=== PATIENT | female | born 1955 | race Caucasian/White ===

== ENCOUNTER 2022-12-25 06:39 | Outpatient (REF) | payer MEDICARE, SELFPAY | END 2022-12-25 06:40 | disposition home or self-care (01) | LOC: HO.HOSX 06:39 | PROVIDERS: Visit Provider Orthopaedic Surgery | DX: T84.84XA Pain due to internal orthopedic prosthetic devices, implants and grafts, initial encounter (principal); Z96.652 Presence of left artificial knee joint | CPT/HCPCS: 73562; 99212 ==

== ENCOUNTER 2022-12-25 10:55 | Outpatient (AMB) | payer MEDICARE, BC, SELFPAY ==
--- NOTE | 2022-12-25 11:05 | MHC.OFFVIS ---
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 She continues with her home stretching program. She denies any fevers or chills. She denies any locking or giving way. He has not take any medicines for discomfort. Allergies Sulfa (Sulfonamide Antibiotics) Allergy (Unknown, Verified 12/25/22 11:07) Nausea Medication List - Last Reconciled 12/25/22 by Winston Odom MD alendronate 70 mg PO QWEEK blood sugar diagnostic (FreeStyle Lite Strips) As directed diltiazem HCl mg PO insulin pump cart,auto,BT-cntr (Omnipod 5 G6 Intro Kit (Gen 5) subcutaneous cartridge with controller) As directed insulin pump cart,automated,BT (Omnipod 5 G6 Pods (Gen 5) subcutaneous cartridge) As directed insulin pump cart,cont inf,RF (Omnipod Classic Pods (Gen 3) subcutaneous cartridge) As directed insulin regular hum U-500 conc (Humulin R U-500 (Concentrated) Insulin) units subcut loratadine 10 mg PO DAILY morphine ER 15 mg PO BID PRN omeprazole 20 mg PO DAILY rivaroxaban (Xarelto) 20 mg PO DAILY simvastatin 20 mg PO BEDTIME Physical Exam Const Other: Well-nourished well-developed very friendly female awake alert and oriented x3 in no acute distress Extrem Other: Bilateral lower extremity examination shows good capillary refill, no skin lesions noted, normal sensation light touch Left knee examination shows that the surgical incision is well healed, no erythema, range of motion from -3 degrees to 110 degrees, her patella tracks well Results Reviewed Results Reviewed: X-rays of the patient's left knee show a total knee arthroplasty in good position with no signs of loosening, no acute bony abnormalities Assessment & Plan Assessment & Plan (1) Left knee pain: Code(s): M25.562 - Pain in left knee Plan Ms. Hammond continues to do well after undergoing left total knee replacement surgery on 12/20/2022. She will continue with her home stretching program. She does know to take antibiotics before any dental work. She will contact me prior to her annual follow-up appointment should her symptoms worsen in any way. Feel free to call me at any time should questions regarding her orthopedic management arise. I spent 22 minutes in reviewing the patient's records and imaging studies, seeing the patient and documenting in the medical record. Orders: Orders XR knee LT 3V Today M25.562 - Pain in left knee Coding Level of Care Code Est Pt Level 2 (47024) Diagnoses Left knee pain M25.562
== END 2022-12-25 11:26 | disposition home or self-care (01) ==
PROVIDERS: PCP Internal Medicine Endocrinology, Diabetes & Metabolism; Visit Provider Orthopaedic Surgery
DX: M25.562 Pain in left knee (principal)
CPT/HCPCS: 99212

== ENCOUNTER 2023-12-25 13:08 | Outpatient (AMB) | payer MEDICARE, BC, SELFPAY ==
--- NOTE | 2023-12-25 13:11 | MHC.OFFVIS ---
Intake Visit Reasons: OV-Left knee follow up Intake Note: Rhina is a 68 year old female that presents today for a follow up after undergoing left total knee replacement surgery on 12/20/2021. Pt states ocassionally she will get some pain especially after going up and down stairs multiple times. Pt states she has been working on her ROM exercises which has improved a lot. Pt denies any other concerns at this time. She continues with her home exercise program. She does not take any medicines for her discomfort. Allergies Sulfa (Sulfonamide Antibiotics) Allergy (Unknown, Verified 12/25/23 13:11) Nausea Medication List - Last Reconciled 12/25/23 by Winston Odom MD alendronate 70 mg PO QWEEK blood sugar diagnostic (FreeStyle Lite Strips) As directed diltiazem HCl CD mg PO insulin pump cart,auto,BT-cntr (Omnipod 5 G6 Intro Kit (Gen 5) subcutaneous cartridge with controller) As directed insulin pump cart,automated,BT (Omnipod 5 G6 Pods (Gen 5) subcutaneous cartridge) As directed insulin pump cart,cont inf,RF (Omnipod Classic Pods (Gen 3) subcutaneous cartridge) As directed insulin regular hum U-500 conc (Humulin R U-500 (Concentrated) Insulin) units subcut loratadine 10 mg PO DAILY morphine ER 15 mg PO BID PRN omeprazole 20 mg PO DAILY rivaroxaban (Xarelto) 20 mg PO DAILY simvastatin 20 mg PO BEDTIME Physical Exam Const Other: Well-nourished well-developed very friendly female awake alert and oriented x3 in no acute distress Extrem Other: Bilateral lower extremity examination shows good capillary refill, no skin lesions noted, normal sensation light touch Left knee examination shows that the surgical incision is well healed, no erythema, full active extension and flexion to 120 degrees, her patella tracks well Assessment & Plan Assessment & Plan (1) Left knee pain: Code(s): M25.562 - Pain in left knee Category: Medical Plan Ms. Hammond continues to do well after undergoing left total knee replacement surgery on 12/14/2021. She will continue with her home exercise program. She does know to take antibiotics before any dental work. She will contact me prior to her annual follow-up appointment should any questions or concerns arise. Feel free to call me at any time should questions regarding her orthopedic management arise. I spent 22 minutes in reviewing the patient's records and imaging studies, seeing the patient and documenting in the medical record. Coding Level of Care Code Est Pt Level 3 (60578) Complex EM visit Add On G2211 Diagnoses Left knee pain M25.562
== END 2023-12-25 13:33 | disposition home or self-care (01) ==
PROVIDERS: PCP Internal Medicine Endocrinology, Diabetes & Metabolism; Visit Provider Orthopaedic Surgery
DX: M25.562 Pain in left knee (principal); Z96.652 Presence of left artificial knee joint
CPT/HCPCS: 99213

== ENCOUNTER → 2023-12-25 13:08 | Outpatient (BNVA) | payer MEDICARE, BC, SELFPAY | PROVIDERS: PCP Internal Medicine Endocrinology, Diabetes & Metabolism; Visit Provider Orthopaedic Surgery | DX: M25.562 Pain in left knee (principal); Z98.890 Other specified postprocedural states | CPT/HCPCS: 99212 ==

== ENCOUNTER 2024-12-23 08:26 | Outpatient (REF) | payer MEDICARE, SELFPAY ==
--- OUTSIDE RECORDS SUMMARY | 2024-12-27 08:56 | XMS_ITS | Clinical Summary ---
Author Organization [facility] Address [address] [place] [address] Care Team Providers Care Loading Unit Operator Name Role Phone Nikki Bansal Primary Care Provider Allergies Active Allergy Reactions Criticality Noted Date Comments Adhesive Tape Rash Low 06/14/2021 Sulfa Antibiotics Other (See Comments) Low Stomach pain Sulfacetamide Other (See Comments) Low 03/11/2005 GI pain Medications Medication Sig Dispensed Refills Start Date End Date Status HUMULIN R 500 UNIT/ML injection In Pump over 24 hours 12 am- 3 am 0.25 units 3 am-10 am 0.50 units 10am - 2;;00 pm: 0.70 units 2pm-12:00 AM 0.85 Units 5 12/14/2018 Active glucose blood (FREESTYLE LITE) test strip 1 each by Other route as needed for other. Use as instructed 0 Active simvastatin (ZOCOR) tablet 20 mg Take 20 mg by mouth every night at bedtime. 0 Active Loratadine 10 MG CAPS Take 1 tablet by mouth daily. 0 Active dilTIAZem (CARDIZEM CD) 360 MG 24 hr capsule Take 360 mg by mouth daily. 0 Active omeprazole (PriLOSEC) 20 MG capsule Take 20 mg by mouth daily. 0 Active ketotifen (ZADITOR) 0.025 % ophthalmic solution 1 drop 2 (two) times a day as needed. 0 Active carboxymethylcellul ose PF (REFRESH PLUS) 0.5 % SOLN 3 drops 3 (three) times a day as needed. 0 Active acetaminophen (TYLENOL) 500 MG tablet Take by mouth every 6 (six) hours as needed. 0 Active triamcinolone (KENALOG) 0.025 % cream Apply topically 2 (two) times a day as needed. 0 Active alendronate (FOSAMAX) tablet 70 mg Take 70 mg by mouth every 7 days. Tuesdays 0 04/02/2021 Active dabigatran etexilate (Pradaxa) 150 MG capsu Take 1 capsule by mouth 2 (two) times a day. 0 02/26/2021 Active Probiotic Product (Remote Assistant Immune Defense) CHEW Chew 1 tablet by mouth daily. 0 Active Insulin Disposable Pump (OmniPod 5 Pack) MISC 0 10/25/2021 Active methocarbamol (ROBAXIN) 750 MG tablet Take 1 tablet (750 mg total) by mouth every 6 (six) hours as needed (spasms). 50 tablet 0 12/21/2021 Active meloxicam (MOBIC) 15 MG tablet Take 1 tablet (15 mg total) by mouth daily. 30 tablet 0 12/21/2021 Active senna-docusate (PERICOLACE) 8.6-50 MG Take 1 tablet by mouth 2 (two) times a day as needed for constipation. 50 tablet 0 12/21/2021 Active oxyCODONE (Roxicodone) 5 MG immediate release tablet Take 1-2 tablets (5-10 mg total) by mouth every 6 (six) hours as needed for pain. 38 tablet 0 01/01/2022 Active amoxicillin (AMOXIL) 500 MG tablet Take 4 tabs 1 hour prior to dental appointment 20 tablet 3 01/03/2022 Active Morphine Sulfate ER (MS CONTIN) 15 MG TBCR 0 02/04/2022 Active Xarelto 20 MG TABS tablet Take 1 tablet (20 mg total) by mouth daily. 0 04/19/2022 Active Active Problems Problem Noted Date Diagnosed Date Postop check 01/03/2022 Arthritis of knee, left 10/05/2021 Follow-up exam after treatment 09/19/2021 Impingement syndrome of right shoulder 2 Adhesive capsulitis of right shoulder associated with type 2 diabetes mellitus 06/14/2021 Subacromial bursitis of right shoulder joint Arthritis of knee, left 01/27/2019 Immunizations Name Administration Dates Next Due Covid-19 (Jade Magnet) Dilution Required 10/22,08/10/2021,02/06/2021,06/18/19 21,06/01/2020 Family History Medical History Relation Name Comments Arthritis Father Diabetes Father Heart disease Father Cancer Mother Diabetes Sister Heart disease Sister Relation Name Status Comments Father Mother Sister high cholestero l Social History Tobacco Use Types Packs/Day Years Used Date Smoking Tobacco: Never Smokeless Tobacco: Never Alcohol Use Standard Drinks/Week Comments Yes 0 (1 standard drink = 0.6 oz pur e alcohol) rare Sex and Gender Information Value Date Recorded Sex Assigned at Female 10/31/2021 2:09 PM EDT Gender Identity Female 10/31/2021 2:09 PM EDT Sexual Orientation Not on file Job Start Date Occupation Industry Not on file Not on file Not on file Last Filed Vital Signs Vital Sign Reading Time Taken Comments Blood Pressure 115/69 12/21/2021 7:28 AM EDT Pulse 71 12/21/2021 7:28 AM EDT Temperature 36.6 C (97.9 F) 12/21/2021 7:28 AM EDT Respiratory Rate 16 12/21/2021 7:28 AM EDT Oxygen Saturation 94% 12/21/2021 7:28 AM EDT Inhaled Oxygen Concentration - - Weight 88.5 kg (195 lb 1.7 oz) 12/20/2021 7:49 A M EDT Height 157.5 cm (5' 2 ) 12/20/2021 7:49 AM EDT Body Mass Index 35.69 12/20/2021 7:49 AM EDT Plan of Treatment Health Maintenance Due Date Last Done Comments Hepatitis C Screening 1954 Depression Screening 1966 BMI Counseling 01/16/1972 Preventative Health Evaluation 01/16/1972 Colon Cancer Screening (Colonoscopy) 1999 Breast Cancer Screening (Mammogram) 01/16/2004 Shingrix-Zoster Vaccine (1 of 2) 01/16/2004 RSV Adult > 60+ Yrs or (1 - Risk 60-74 years 1-dose series) 2014 Fall Risk Assessment 2019 Osteoporosis Screening (DEXA Scan) 2019 COVID-19 Vaccine ( season) 2024 10/31/2021, 08/10/2021, 02/06/2021, Additional history exists Influenza Vaccine (#1) 2024 , 01/11/2020, 01/18/2019, Additional history exists DTap / Tdap / Td (3 - Td or Tdap) 01/09/2028 01/08/2018, 07/03/2007 Pneumococcal Vaccine Completed 04/20/2021, 02/09/2018, 07/05/2013 Hepatitis B Vaccines Aged Out No long er eligible based on patient's age to complete this topic RSV Ped < 20 months Aged Out No longe r eligible based on patient's age to complete this topic Medical Devices Implanted Type Area [employer] Fermentation Operator Device Identifier Shelf Expiration Date Model / Serial / Lot Cement Bone Surg Simplex Radiopq Stry-Howm 9549-6-689-114 092 - [id number] Implanted:Qty: 1 on 12/20/2021 by [place] [facility] [place]: Knee [employer] [id number] 02/20/2023 6191-1-010 / / [id number] Cement Bone Surg Simplex Radiopq Stry-Howm [id number] [id number] - [id number] Implanted:Qty: 1 on 12/20/2021 by Winston [place]dom [place] [facility] Left: Knee [employer] [id number] 02/20/2023 6191-1-010 / / [id number] Femoral Cmpnt Lt Sz 2 Stry-Howm [id number]-[id number] 021 - [id number] Implanted:Qty: 1 on 12/20/2021 by Winston [place]dom [place] [facility] [place]: Knee [employer] [id number] 05/26/2026 5515-F-201 / / [id number] Knee Tib Baseplt Prim Cmnt Sz3 Stry-Howm 8069-[id number] 319 - [id number] Implanted:Qty: 1 on 12/20/2021 by Winston Odom [place] [facility] Left: Knee [employer] [id number] 06/14/2026 5520-B-300 / / [id number] Knee Insert Tib Ps X3 Sz3 11mm Stry-Howm 4328-[id number] [id number] - [id number] Implanted:Qty: 1 on 12/20/2021 by Winston Odom [place] [facility] Left: Knee [employer] [id number] 04/16/2025 5532-G-311 / / [id number] Knee Pat Symmetric X3 29x8mm Stry-Howm [id number] - [id number] Implanted:Qty: 1 on 12/20/2021 by Winston Odom [place] [facility] Left: Knee [employer] [id number] 08/24/2026 5550-G-298 / / [id number] Peg Fix Femoral Distal Stry-How [id number] - [id number] Implanted:Qty: 1 on 12/20/2021 by Winston Odom [place] [facility] [place]: Knee [employer] [id number] 11/21/2026 5575-X-000 / / [id number] Advance Directives For more information, please contact: [phone] Latest Code Status on File Code Status Date Activated Date Inactivated Comments Full Code 12/20/2021 1:09 PM 12/21/2021 6:45 PM This code status was ascertained in the following way: discussion with patient . Code Status History Code Status Date Activated Date Inactivated Comments Full Code 12/20/2021 6:48 AM 12/20/2021 1:09 PM This code status was ascertained in the following way: discussion with patient . Care Teams Loading Unit Operator Relationship Specialty Start Date End Date Nikki Bansal [address] [place] [id number] PCP - General Internal Medicine 01/15/19
--- OUTSIDE RECORDS SUMMARY | 2024-12-27 08:56 | XMS_ITS | Clinical Summary ---
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 Dx Code E11.8 12/07/19 23 Active alendronate (FOSAMAX) 70 mg tablet TAKE 1 TABLET BY MOUTH WEEKLY 08/21/19 24 Active triamcinolone (KENALOG) 0.025 % cream APPLY SPARINGLY TO AFFECTED AREAS TWICE A DAY 03/18/20 23 Active Lactobac. rhamnosus GG-inulin ([facility] Geron) 10 billion cell -200 mg capsule, sprinkle Take by mouth. Activ e loratadine (CLARITIN) 10 mg tablet Take 1 Tab by mouth daily for 360 days. 07/29/19 19 Active omeprazole (PRILOSEC) 20 mg tablet,delayed release (DR/EC) Take 1 tablet (20 mg total) by mouth 1 (one) time each day. Active CHOLECALCIFEROL, VITAMIN D3, ORAL Take 1 Capsule by mouth daily Active glucagon (Gvoke HypoPen 2-Pack) 0.5 mg/0.1 mL auto-injector Inject 0.1 mL under the skin if needed (low blood sugar). 0.2 mL 5 02/12/20 24 Active propylene glycol/peg 400/PF (SYSTANE, PF, OPHT) Administer 1 drop into affected eye(s) if needed. Active insulin pump cart,auto,BT,G6/ 7 (Omnipod 5 G6-G7 Pods, Gen 5,) cartridgeIndicat ions:Diabetes mellitus type 2, with complication, on superintendent terminal insulin pump ([facility] V24, [facility] V28) Change pod every 3 days 10 each 11 03/12/20 24 Active acetaminophen (TYLENOL ORAL) Take 650 mg by mouth 3 (three) times a day. 2 tablets every 8 hours Active dilTIAZem CD (CARDIZEM CD) 180 mg 24 hr capsule TAKE 2 CAPSULES BY MOUTH EVERY DAY 180 capsule 1 06/15/19 25 Active Xarelto 20 mg tablet TAKE 1 TABLET BY MOUTH EVERY DAY 30 tablet 6 06/23/19 25 Active BIOTIN, BULK, MISC Active simvastatin (ZOCOR) 20 mg tablet TAKE 1 TABLET BY MOUTH EVERYDAY AT BEDTIME 90 tablet 1 08/04/19 25 Active blood sugar diagnostic (FreeStyle Lite Strips) test stripIndications :Diabetes mellitus type 2, with complication, on superintendent terminal insulin pump ([facility] V24, [facility] V28) Use to check BS 3 times a day 300 each 3 08/20/19 25 Active meclizine (ANTIVERT) 12.5 mg tablet Take 1 tablet (12.5 mg total) by mouth 3 (three) times a day if needed. 07/16/19 25 Active HumuLIN R U-500, Conc, Insulin 500 unit/mL CONCENTRATED injection USE TO DAILY WITH INSULIN PUMP MAX DAILY DOSE 100 UNITS. 20 mL 5 11/03/19 25 Active morphine (MS CONTIN) 15 mg 12 hr tablet Take 1 tablet (15 mg total) by mouth 2 (two) times a day. Max Daily Amount: 30 mg 56 tablet 12/15/19 25 Active alcohol swabs pads, medicatedIndicat ions:Type 2 diabetes mellitus with other specified complication, with long-term current use of insulin ([facility] V24, [facility] V28) DIRECTED 400 each 11 12/18/19 25 Active freestyle (FreeStyle Lancets) 28 gauge lancetsIndicatio ns:Type 2 diabetes mellitus with other specified complication, with long-term current use of insulin ([facility] V24, [facility] V28) 1 Stick by route 4 times daily. 400 each 11 12/18/19 25 Active calcium carbonate-vitami n D3 1,000 mg-20 mcg (800 unit) tablet Take 500 mg by mouth 2 (two) times a day. Active blood-glucose sensor (Dexcom G7 Sensor) deviceIndication s:Type 2 diabetes mellitus with other specified complication, with long-term current use of insulin ([facility] V24, [facility] V28) Change sensor every 10 days 3 each 11 12/18/19 25 Active FREESTYLE LANCETS MISC 1 Stick by route 4 times daily. 04/03/19 12 025 Discontin ued(Reord er) alcohol swabs pads, medicated DIRECTED 06/20/19 10 025 Discontin ued(Reord er) blood-glucose sensor (Dexcom G6 Sensor) deviceIndication s:Diabetes mellitus type 2, with complication, on superintendent terminal insulin pump ([facility] V24, [facility] V28) Change sensor every 10 days 3 each 11 03/12/20 24 025 Discontin ued(Formu selene change) blood-glucose transmitter (Dexcom G6 Transmitter) deviceIndication s:Diabetes mellitus type 2, with complication, on group home insulin pump ([facility] V24, [facility] V28) Change transmitter every 3 months 1 each 3 03/12/20 24 025 Discontin ued(Formu selene change) morphine (MS CONTIN) 15 mg 12 hr tablet Take 1 tablet (15 mg total) by mouth 2 (two) times a day. Max Daily Amount: 30 mg 56 tablet 11/13/19 25 025 Discontin ued(Reord er) Active Problems Problem Noted Date Diagnosed Date Cardiac pacemaker in situ 10/20/2024 Permanent atrial fibrillation ([facility] V24, [facility] V28) 09/05/2023 Dupuytren's disease 04/12/2023 Diabetes mellitus type 2, wi th complication, on superintendent terminal insulin pump ([facility] V24, [facility] V28) 01/28/2022 Poorly controlled type 2 arlette betes mellitus with cataract ([facility] V24, [facility] V28) 01/28/2022 Stage 3 chronic kidney disease ([facility] V24, [facility] V28) 11/28/2021 Osteoporosis 12/10/2019 Paroxysmal A-fib ([facility] V24, [facility] V28) 09/23 Overview (01/02/2024): Last Assessment & Plan: Pacemaker with underlying atrial fibrillation. Her rate is controlled on diltiazem, anticoagulated on Pradaxa. She understands risk and benefits of anticoagulation and wished to continue. She will be going for a left total knee replacement in the next few weeks, I reviewed she may interrupt her therapy as the surgeon feels fit. 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 No new concerns on remote checks. Anatomical narrow angle 08/09/2014 Overview (01/02/2024): No Glaucoma Chronic back pain 12/31/2013 Overview (01/02/2024): Winston Odom MD note 09/07/2013 Degenerative joint disease of knee, left 014 Overview (01/02/2024): Winston Odom MD note 09/07/2013 Nuclear sclerosis 12/31/2013 Overview (01/02/2024): Dr Catalan note 02/08/2013 Sleep apnea 10/30/2012 Obesity 05/14/2011 Chronic liver disease 03/04/2006 Overview (01/02/2024): IMO update Diaphragmatic hernia 03/04/2006 Overview (01/02/2024): IMO update Diverticulitis of colon without hemorrhage 08/23 Paroxysmal supraventricular tachycardia ([facility] V24) 05/23/2005 Overview (01/02/2024): Stress test 06/27 neg 02/2015: Ablation Dr. Bhardwaj Ulcerative colitis ([facility] V24, [facility] V28) Hyperlipidemia 03/11/2005 Overview (01/02/2024): Last Assessment & Plan: Last lipid panel 03/13 total cholesterol 141, HDL 38, LDL 73. Continue statin. Encounters Date Type Department Care Team Description 12/18/2024 Telephone [facility] [address] [place] [address] Rhiannon Dias [place] 12/17/2024 2:30 PM EDT Office Visit Endocrinology [address] [phone] Laura Mccarthy PA Type 2 diabetes mellitus with other specified complication, with long-term current use of insulin ([facility] V24, [facility] V28) (Primary Dx); Stage 3 chronic kidney disease, unspecified whether stage 3a or 3b CKD ([facility] V24, [facility] V28); Mixed hyperlipidemia 12/16/[address] [phone] Laura Mccarthy PA 12/01/2024 1:15 PM EDT Office Visit Adult [facility] [place] - [address] [phone] Lilli Epps PA Chronic left-sided low back pain with left-sided sciatica (Primary Dx); Age-related osteoporosis without current pathological fracture; Vitamin D deficiency 11/11/2024 10:00 AM EDT - 11/11/2024 11:59 PM EDT Hospital Encounter [facility] [address] [place] [phone] Post-menopausal Discharge Disposition: Home or Self Care 10/20/2024 1:00 PM EDT Office Visit [facility] - [address] [place] [phone] Mitch Palafox MD Paroxysmal A-fib (CMS/HCC V24, CMS/HCC V28) (Primary Dx); Sick sinus syndrome (CMS/HCC V24, CMS/HCC V28); Obstructive sleep apnea syndrome; Cardiac pacemaker in situ 10/15/2024 7:35 PM EDT Ancillary Procedure [facility] - [address] [facility] [address] [place] [phone] from Last 3 Months Immunizations Immunization Administration Dates Next Due COVID-19 (Pfizer/Comirnaty) 12yo and older 02/12/2023 H1N1 Inj Preservative Free 03/07/2009 Influenza Quadravalent, 0.5m l (Fluzone High-dose) 65yo and older 12/24/2023 Influenza Quadravalent, MDCK , 0.5ml, with preservative (Flucelvax) 6mo and older 01/08/2018,12/19/2016 Influenza trivalent, 0.5mL ( Fluad) 65yo and older 12/24/2023 Influenza trivalent, 0.5mL ( Fluzone High-dose) 65yo and older 12/20/2022,01/12/2021,01/11/2020,01/18 Influenza trivalent, with pr eservative (Fluzone; Afluria) 6mo and older 06/18/2016,02/03/2014,01/01/2013,01/13,05/14/2011,11/29/2009,12/16/2008 Sampa SARS-CoV-2 COVID-19, mRNA, LNP-S, preservative free 03/10/2022,02/06/2021,06/17/2020,05/26 Pneumococcal conjugate 13 va lent (Prevnar 13, PCV13) 2mo and older 02/09/2018 Pneumococcal polysaccharide 23 valent (Pneumovax 23) 2yo and older 04/20/2021,07/05/2013 RSV, bivalent, protein subun it RSVpreF, 0.5mL, Preservative Free (ABRYSVO) 50yo and older or 32 through 36 wks of 02/26/2023 Td Tetanus diptheria (Tdvax) 7yo and older 01/08/2018 Tdap Tetanus diptheria acell ular pertussis (Boostrix; Adacel) 7yo and older 07/03/2007 Zoster Live 01/13/2015 Surgical History Surgery Date Site/Laterality Comments KNEE SURGERY 1984 Left PROCEDURE:KNEE SURGERY KNEE SURGERY 1994 Right PROCEDURE:KNEE SURGERY CARDIAC ELECTROPHYSIOLOGY MAPPING AND ABLATION 2014 PROCEDURE:CARDIAC ELECTROPHYSIOLOGY MAPPING AND ABLATION CARDIAC PACEMAKER PLACEMENT 2015 PROCEDURE:CARDIAC PACEMAKER PLACEMENT UPPER GASTROINTESTINAL ENDOSCOPY PROCEDURE:UPPER GASTROINTESTINAL ENDOSCOPY COLONOSCOPY PROCEDURE:COLONOSCOPY LUMBAR EPIDURAL INJECTION PROCEDURE:LUMBAR EPIDURAL INJECTION REFRACTIVE SURGERY PROCEDURE:REFRACTIVE SURGERY TOTAL KNEE ARTHROPLASTY 2 Left PROCEDURE:TOTAL KNEE ARTHROPLASTY;COMMENT:Procedure : REPLACEMENT TOTAL KNEE; Surgeon: Winston Odom MD; [facility] [place] Service: Orthopedics; Laterality: Left; JOINT REPLACEMENT PROCEDURE:JOINT REPLACEMENT OTHER SURGICAL HISTORY 07/28 PROCEDURE: NM ECHO TRANSTHORAC R-T 2D W/WO M-MODE REC COMP; COMMENT: mild LVH OTHER SURGICAL HISTORY 07/28 PROCEDURE: NM XTRNL ECG & 48 HR RECORD SCAN STOR W/R&I; COMMENT: neg ESOPHAGOGASTRODUODENOSCOPY 05/03/05 PROCEDURE: NM ESOPHAGOGASTRODUODENOSCOPY TRANSORAL DIAGNOSTIC; COMMENT: Lashae souza COLONOSCOPY 05/03/05 PROCEDURE: NM COLONOSCOPY STOMA DX INCLUDING COLLJ SPEC SPX; COMMENT: Lashae choi OTHER SURGICAL HISTORY 06/09/15 PROCEDURE: COLON CA SCRN NOT HI RSK IND; COMMENT: jimbo; repeat in 10 yrs BREAST BIOPSY 2018 Right PROCEDURE: BX BREAST; PERC NEEDLE CORE W/IMAG GUID Medical History Medical History Date Comments Heart disease DX:Heart disease GERD (gastroesophageal reflux disease) DX:GERD (gastroesophageal reflux disease) Osteoarthritis DX:Osteoarthriti s Hiatal hernia DX:Hiatal hernia Ulcerative colitis ([facility] V24, [facility] V28) 2007 DX:Ulcerative colitis ([facility]) Hypertension DX:Hypertension Hyperlipidemia DX:Hyperlipidemi a Arrhythmia DX:Arrhythmia;CO MMENT:AFIB Migraine headache DX:Migraine he adache;COMMENT:Hx Diabetes mellitus, type II ( [facility] V24, [facility] V28) DX:Diabetes mellitus, type I I ([facility]) Lumbar back pain DX:Lumbar back pain;COMMENT:s/p injury Peripheral neuropathy DX:Periphe ral neuropathy;COMMENT:numbness toes- hands from CTS Cataract DX:Cataract Glaucoma DX:Glaucoma Chronic pain disorder DX:Chronic pain disorder;COMMENT:LBP Pacemaker, artificial DX:Pacemak er, artificial;COMMENT:Biotronik Sleep apnea DX:Sleep apnea;C OMMENT:Does not tolerate CPAP Bilateral swelling of feet DX:Bi lateral swelling of feet Diverticulosis of colon (wit hout mention of hemorrhage) 08/23/2005 DX:Diverticulosis of colon ( without mention of hemorrhage) Diaphragmatic hernia without mention of obstruction or gangrene 03/04/2006 DX:Diaphragmatic hernia wit hout mention of obstruction or gangrene Type II or unspecified type diabetes mellitus with unspecified complication, not stated as uncontrolled DX:Type II or unspecified ty pe diabetes mellitus with unspecified complication, not stated as uncontrolled Unspecified chronic liver di sease without mention of alcohol 03/04/2006 DX:Unspecified chronic live r disease without mention of alcohol Heart disease, unspecified DX:He art disease, unspecified; COMMENT: A FIB Esophageal reflux DX:Esophageal reflux Obesity 05/14/2011 DX:Obesity Diabetes type 2, uncontrolled 08/27/2012 DX :Diabetes type 2, uncontrolled Glaucoma 08/04/2014 DX:Glaucoma Pacemaker 11/29/2015 DX:Pacemaker; CO MMENT: Lashae; 07/24/15 Family History Medical History Relation Name Comments Arthritis Father Cataracts Father Diabetes Father Heart disease Father Breast cancer Maternal Grandmother 60s Cancer Mother Leukemia Mother Diabetes Sister 1 Heart disease Sister 1 Cataracts Sister 2 Hyperlipidemia Sister 3 Diabetes Sister 4 Renal failure Thyroid disease Sister 5 Glaucoma Uncle 1 Heart attack Uncle 2 pat Blindness Neg Hx Macular degeneration Neg Hx Strabismus Neg Hx Relation Name Status Comments Father Maternal Grandmother 60s Mother Sister 1 high cholestero l Sister 2 Sister 3 Sister 4 Sister 5 Uncle 1 Uncle 2 Social History Tobacco Use Types Packs/Day Years Used Date Smoking Tobacco: Never Smokeless Tobacco: Never Tobacco Cessation:Counseling Given: Not Answered Alcohol Use Standard Drinks/Week Comments Yes 0 (1 standard drink = 0.6 oz pur e alcohol) Comments No Sex and Gender Information Value Date Recorded Sex Assigned at Female 02/09/2024 4:33 PM EST Legal Sex Female 4:04 PM EST Gender Identity Female 02/09/2024 4:33 PM EST Sexual Orientation Straight 02/09/2024 4: 33 PM EST Obstetrics History Para Term AB IAB SAB Ectopic Multiple Livin g Live Births 0 0 0 0 Last Filed Vital Signs Vital Sign Reading Time Taken Comments Blood Pressure 122/62 12/17/2024 2:23 PM EDT Pulse 75 12/17/2024 2:23 PM EDT Temperature 36.2 C (97.1 F) 12/17/2024 2:23 PM EDT Respiratory Rate 14 12/01/2024 1:09 PM EDT Oxygen Saturation 95% 12/01/2024 1:09 PM EDT Inhaled Oxygen Concentration - - Weight 86.2 kg (190 lb) 12/17/2024 2:23 PM EDT Height 157.5 cm (5' 2 ) 12/17/2024 2:23 PM EDT Body Mass Index 34.75 12/17/2024 2:23 PM EDT Plan of Treatment Upcoming Encounters Date Type Department Care Team (Late st Contact Info) Description 01/17/2025 9:00 AM EDT Ancillary Procedure [facility] [address] [facility] [address] [place] [phone] 01/26/2025 3:00 PM EST Office Visit [address] [phone] Laura Mccarthy PA [address] [place] [address] 03/03/2025 1:30 PM EST Office Visit Adult Medicine [place] - [address] [phone] Darlene Christina MD [address] [place] [address] Health Maintenance Due Date Last Done Comments Diabetes: Annual Foot Exam 01/16/1964 Zoster Vaccines (1 of 2) 03/10/2015 01/13/2015 Falls Risk Assessment 02/28/2022 Social Influencers of Health Screening 02/28/2022 Depression Screening 03/24/2024 12/24/2023 COVID-19 Vaccine (9 - Pfizer risk season) 2024 02/17/2024, 02/12/2023, 03/10/2022, Additional history exists Influenza Vaccine (#1) 2024 , 12/24/2023, 12/20/2022, Additional history exists Medicare Annual Wellness Visit 12/23/2024 12/24/2023 Colorectal Cancer Screening: Colonoscopy 06/08/2025 06/09/2015 Diabetes: Blood Sugar Control Test (HGBA1C) 06/08/2025 12/09/2024, 09/10/2024, 02/12/2024, Additional history exists Diabetes: Annual Retina Eye Exam 11/18/2025 11/18/2024, 12/16/2023 Diabetes: Annual Urine Albumin-Creatinine Ratio (uACR) 12/09/2025 12/09/2024, 09/14/2024, 11/10/2023 Diabetes: Annual GFR (Glomerular Filtration Rate) 12/09/2025 12/09/2024, 09/10/2024, 07/12/2024, Additional history exists Hypertension/CHF/CAD Annual BMP Blood Test 12/09/2025 12/09/2024, 09/10/2024, 07/12/2024, Additional history exists Breast Cancer Screening 08/13/2026 08/14/19, 08/06/2023, 08/06/2023, Additional history exists Osteoporosis Screening (Bone Density Screening) 11/11/2026 11/11/2024, 12/13/2021, 12/09/2019 DTaP,Tdap,and Td Vaccines (3 - Td or Tdap) 01/09/2028 01/08/2018, 07/03/2007 Cholesterol Screening (Lipid Panel) 12/09/2029 12/09/2024, 09/10/2024, 11/07/2023, Additional history exists Hepatitis C Screening Completed 12/18/2012 Pneumococcal Vaccine: 50+ Years Completed 04/20/2021, 02/09/2018, 07/05/2013 RSV Immunization Adult Patients Completed 02/26/2023 HIB Vaccines Aged Out No longer eligi ble based on patient's age to complete this topic HPV Vaccines Aged Out No longer eligi ble based on patient's age to complete this topic Hepatitis A Vaccines Aged Out No long er eligible based on patient's age to complete this topic Hepatitis B Vaccines Aged Out No long er eligible based on patient's age to complete this topic IPV Vaccines Aged Out No longer eligi ble based on patient's age to complete this topic MMR Vaccines Aged Out No longer eligi ble based on patient's age to complete this topic Meningococcal ACWY Vaccine Aged Out N o longer eligible based on patient's age to complete this topic Meningococcal B Vaccine Aged Out No l onger eligible based on patient's age to complete this topic RSV Immunization Patients Under 20 months Aged Out No longer eligible based on patient's age to complete this topic Varicella Vaccines Aged Out No longer eligible based on patient's age to complete this topic Medical Devices Implanted Type Area Marine Pipe Welder Device Identifier Shelf Expiration Date Model / Serial / Lot Brenton Patterson hCa Joyner [id number] Implanted: (Quantity not on file) Cardiac Pacemaker [employer] ADAM JOYNER / [id number] / Cement Bone Surg Simplex Radiopq Stry-How [id number] Implanted:Qt y: 1 on 12/20/2021 by Winston Odom MD Left: Knee [employer] [id number] 02/20/20236190-03-01 0 / / [id number] Cement Bone Surg Simplex Radiopq Stry-Howm [id number] Implanted:Qt y: 1 on 12/20/2021 by Winston Odom MD Left: Knee [employer] [id number] 02/20/2023 6190-03-24 0 / / [id number] Femoral Cmpnt Lt Sz 2 Stry-Howm 9926-T-[id number] [id number] Implanted:Qt y: 1 on 12/20/2021 by Winston Odom MD Left: Knee [employer] [id number] 05/26/2026 5515-F-20 1 / / [id number] Knee Tib Baseplt Prim Cmnt Sz3 Stry-Howm 2229-Y-[id number] [id number] Implanted:Qt y: 1 on 12/20/2021 by Winston Odom MD Left: Knee [employer] [id number] 06/14/2026 5520-B-30 0 / / [id number] Knee Insert Tib Ps X3 Sz3 11mm Stry-Howm 2969-[id number] Implanted:Qt y: 1 on 12/20/2021 by Winston Odom MD Left: Knee [employer] [id number] 04/16/2025 5532-G-31 1 / / [id number] Knee Pat Symmetric X3 29x8mm Stry-Howm [id number] Implanted:Qt y: 1 on 12/20/2021 by Winston Odom MD Left: Knee [employer] [id number] 08/24/2026 5550-G-29 8 / / [id number] Peg Fix Femoral Distal Stry-Howm 7212-[id number] Implanted:Qt y: 1 on 12/20/2021 by Winston Odom MD Left: Knee [employer] [id number] 11/21/2026 5575-X-00 0 / / [id number] Procedures Procedure Name Priority Date/Time Associated Diagnosis Comments BASIC METABOLIC PANEL Routine 12/09/2024 11:12 AM EDT Diabetes mellitus type 2, with complication, on superintendent terminal insulin pump (CMS/HCC V24, CMS/HCC V28) HEMOGLOBIN A1C Routine 12/09/2024 11:12 AM EDT Diabetes mellitus type 2, with complication, on superintendent terminal insulin pump (CMS/HCC V24, CMS/HCC V28) LIPID PANEL WITH REFLEX TO DIRECT LDL Routine 12/09/2024 11:12 AM EDT Diabetes mellitus type 2, with complication, on group home insulin pump ([facility] V24, [facility] V28) MICROALBUMIN CREATININE URINE RATIO Routine 12/09/2024 11:12 AM EDT Diabetes mellitus type 2, with complication, on superintendent terminal insulin pump ([facility] V24, [facility] V28) VITAMIN D 25 HYDROXY Routine 12/09/2024 11:12 AM EDT Age-related osteoporosis without current pathological fracture Vitamin D deficiency EXTERNAL DIABETIC RETINA EYE EXAM 11/18/2024 BD BONE DENSITY DXA AXIAL SKELETON Routine 11/11/2024 10:37 AM EDT Post-menopausal CARDIAC DEVICE CHECK- REMOTE- MURJ Routine 10/15/2024 7:34 PM EDT MG MAMMO DIGITAL SCREENING W DAVE BILAT Routine 08/13/2024 1:19 PM EDT Encounter for screening mammogram for breast cancer DEPRESSION SCREENING Routine 12/24/2023 COLONOSCOPY Routine 06/09/2015 HEPATITIS C SCREENING Routine 12/18/2012 from Last 3 Months or Most Recently Relevant to Health Maintenance Results * (ABNORMAL) Lipid panel with reflex to direct LDL (12/09/2024 11:12 AM EDT) Cholesterol 139 0 - 200 mg/dL LAB CHEMISTRY METHOD 12/09/2024 2:44 PM EDT [facility] Triglycerides 168(H) 0 - 150 mg/dL LAB CHEMISTRY METHOD 12/09/2024 2:44 PM EDT [facility] HDL 46 >=40 mg/dL LAB CHEMISTRY METHOD 12/09/2024 2:44 PM EDT [facility] LDL Calculated 59 0 - 100 mg/dL LAB CHEMISTRY METHOD 12/09/2024 2:44 PM EDT [facility] Comment:Estimated LDL Calcul ated using equation: Total cholesterol - HDL cholesterol - (Triglycerides/5) VLDL Cholesterol Silas 33.6 mg/dL LAB CHEMISTRY METHOD 12/09/2024 2:44 PM EDT [facility] Non HDL Chol. (LDL+VLDL) 93 <145 mg/dL LAB CHEMISTRY METHOD 12/09/2024 2:44 PM EDT [facility] Chol/HDL Ratio 3.0 0.0 - 4.4 LAB CHEMISTRY METHOD 12/09/2024 2:44 PM EDT [facility] Blood Venous blood specimen / Unknown Venipuncture / Unknown 12/09/2024 11:12 AM EDT 12/09/2024 11:12 AM EDT us Laura NUNEZ LAB BLOOD ORDERABLES Final Result [facility] [address] [place] [address], * (ABNORMAL) Microalbumin creatinine urine ratio (12/09/2024 11:12 AM EDT) Creatinine, Urine 234.0 mg/dL LAB CHEMISTRY METHOD 12/09/2024 3:46 PM EDT [facility] Microalb, Ur 29.5(H) 0.0 - 29.0 mg/L LAB CHEMISTRY METHOD 12/09/2024 3:46 PM EDT [facility] Microalb/Crea t Ratio 13 <30 mg/g creat LAB CHEMISTRY METHOD 12/09/2024 3:46 PM EDT [facility] Urine Urine specimen from urethra / Unknown Non-blood Collection / Unknown 12/09/2024 11:12 AM EDT 12/09/2024 11:12 AM EDT Laura NUNEZ LAB URINE ORDERABLES Final Result [facility] [address] [place] [address], [place] [phone] * Vitamin D 25 hydroxy (12/09/2024 11:12 AM EDT) Pathologist [facility] Vit D, 25-Hydroxy 48.2 30.0 - 80.0 ng/mL LAB CHEMISTRY METHOD 12/09/2024 3:37 PM EDT [facility] Blood Venous blood specimen / Unknown Venipuncture / Unknown 12/09/2024 11:12 AM EDT 12/09/2024 11:12 AM EDT Lilli NUNEZ LAB BLOOD ORDERABLES Final Res ult Performing Organization Address City/[facility]/ZIP Co de Phone Number [facility] [address] [place] [address], [place] [phone] * (ABNORMAL) Hemoglobin A1c (12/09/2024 11:12 AM EDT) [facility] Hemoglobin A1C 7.8(H) <6.5 % LAB CHEMISTRY METHOD 12/09/2024 9:57 PM EDT [facility] Mean Bld Glu Estim. 177 mg/dL LAB CHEMISTRY METHOD 12/09/2024 9:57 PM EDT [facility] Blood Venous blood specimen / Unknown Venipuncture / Unknown 12/09/2024 11:12 AM EDT 12/09/2024 11:12 AM EDT Laura NUNEZ LAB BLOOD ORDERABLES Final Result [facility] [address] [place] [address], [place] [phone] * (ABNORMAL) Basic metabolic panel (12/09/2024 11:12 AM EDT) Sodium 137 133 - 145 mmol/L LAB CHEMISTRY METHOD 12/09/2024 2:44 PM [facility] Potassium 4.1 3.5 - 5.5 mmol/L LAB CHEMISTRY METHOD 12/09/2024 2:44 PM [facility] Chloride 102 96 - 110 mmol/L LAB CHEMISTRY METHOD 12/09/2024 2:44 PM [facility] CO2 28 21 - 32 mmol/L LAB CHEMISTRY METHOD 12/09/2024 2:44 PM [facility] Anion Gap 7 3 - 11 LAB CHEMISTRY METHOD 12/09/2024 2:44 PM [facility] Glucose 132(H) 70 - 100 mg/dL LAB CHEMISTRY METHOD 12/09/2024 2:44 PM [facility] BUN 15 5 - 25 mg/dL LAB CHEMISTRY METHOD 12/09/2024 2:44 PM [facility] Creatinine 1.05 0.50 - 1.10 mg/dL LAB CHEMISTRY METHOD 12/09/2024 2:44 PM [facility] eGFR 57(L) >=60 mL/min/1. 73m2 LAB CHEMISTRY METHOD 12/09/2024 2:44 PM [facility] Comment:Calculation based on the Chronic Kidney Disease Epidemiology Collaboration (CKD-EPI) equation refit without adjustment for race. BUN/Creatinine Ratio 14.3 LAB CHEMISTRY METHOD 12/09/2024 2:44 PM [facility] Calcium 9.1 8.5 - 10.5 mg/dL LAB CHEMISTRY METHOD 12/09/2024 2:44 PM [facility] Blood Venous blood specimen / Unknown Venipuncture / Unknown 12/09/2024 11:12 AM EDT 12/09/2024 11:12 AM EDT us Laura NUNEZ LAB BLOOD ORDERABLES Final Result [facility] [address] [place] [address], * External Diabetic Retina Eye Exam Report (11/18/2024) Anatomical Region Laterality Modality Ultrasound us Provider [facility] IMG US PROCEDURES Final Result * BD Bone Density DXA Axial Skeleton (11/11/2024 10:37 AM EDT) Anatomical Region Laterality Modality Wrist, Hip, L-spine Bone Densito metry 11/11/2024 10:4 4 AM EDT Impressions 11/11/2024 10:45 AM EDT 1. Osteoporosis. 2. FRAX analysis yields a 10-year probability of major osteoporotic fracture of 30.8% and a 10-year probability of hip fracture of 11.6%. Code 19733 -------- FINAL REPORT -------- Dictated By: Reid Mckay Dictated Date: 11/11/2024 10:44 ET Assigned Physician: Reid Mckay Reviewed and Electronically Signed By: Reid Mckay Signed Date: 11/11/2024 10:45 ET Workstation ID: [id number] Transcribed By: Self Edit Transcribed Date: 11/11/2024 10:44 ET Narrative 11/11/2024 10:45 AM EDT HISTORY: The patient is a 69-year-old postmenopausal female with clinical concern for metabolic bone disease. FINDINGS: Dual energy x-ray absorptiometry of the lumbar spine and femurs is performed. The mean bone mineral density at L2-L4 is 0.941 gm/cm2 which is 78% of that of young normals and 87% of that of age matched controls. This yields a T-score of -2.2 and a Z-score of -1.2 which is diagnostic of osteopenia. The mean bone mineral density of the femurs bilaterally is 0.717 gm/cm2 which is 71% of that of young normals and 82% of that of age matched controls. This yields a T-score of -2.3 and a Z-score of -1.3 which is diagnostic of osteopenia. However, the T-score of the right femoral neck is -3.3 and that of the left femoral neck is -3.8 which is diagnostic of osteoporosis. Procedure Note Reid Mckay MD - 11/11/2024 HISTORY: The patient is a 69-year-old postmenopausal female with clinicalconcern for metabolic bone disease. FINDINGS: Dual energy x-ray absorptiometry of the lumbar spine and femursis performed. The mean bone mineral density at L2-L4 is 0.941 gm/cm2 whichis 78% of that of young normals and 87% of that of age matched controls.This yields a T-score of -2.2 and a Z-score of -1.2 which is diagnostic ofosteopenia. The mean bone mineral density of the femurs bilaterally is 0.717 gm/by6tedja is 71% of that of young normals and 82% of that of age matchedcontrols. This yields a T-score of -2.3 and a Z-score of -1.3 which isdiagnostic of osteopenia. However, the T-score of the right femoral neckis -3.3 and that of the left femoral neck is - 3.8 which is diagnostic ofosteoporosis. IMPRESSION: 1. Osteoporosis. 2. FRAX analysis yields a 10-year probability of major osteoporoticfracture of 30.8% and a 10-year probability of hip fracture of 11.6%. Code 19362 -------- FINAL REPORT -------- Dictated By: Reid Mckay Dictated Date: 11/11/2024 10:44 ET Assigned Physician: Reid Mckay Reviewed and Electronically Signed By: Reid Mckay Signed Date: 11/11/2024 10:45 ET Workstation ID: [id number] Transcribed By: Self Edit Transcribed Date: 11/11/2024 10:44 ET Laura NUNEZ IM DXA PROCEDURES Final Re sult * Cardiac device check - Remote- MURJ (10/15/2024 7:34 PM EDT) Pathologist [facility] Date Time Interrogation Session [id number] CV DEVICE CHECK Type Interrogation Session RemoteScheduled CV DEVICE CHECK Implantable Pulse Generator Marine Pipe Welder BIO CV DEVICE CHECK Implantable Pulse Generator Type IPG CV DEVICE CHECK Implantable Pulse Generator Model Eluna 8 DR-T CV DEVICE CHECK Implantable Pulse Generator Serial Number [id number] CV DEVICE CHECK Implantable Pulse Generator Implant Date [id number] CV DEVICE CHECK Battery Remaining Percentage 30.00 CV DEVICE CHECK Battery Status Middle of Service CV DEVICE CHECK Alex Statistic RA Percent Paced 1.00 CV DEVICE CHECK Alex Statistic RV Percent Paced 68.00 CV DEVICE CHECK Atrial Tachy Statistic AT/AF Dorothy Percent 94.00 CV DEVICE CHECK Lead Channel Sensing Intrinsic Amplitude 4.900 CV DEVICE CHECK Lead Channel Setting Sensing Sensitivity 0.50 CV DEVICE CHECK Lead Channel Impedance Value 585 CV DEVICE CHECK Lead Channel RA Pacing Threshold Date 2024-10-10 CV DEVICE CHECK Lead Channel Setting Pacing Amplitude 3.600 CV DEVICE CHECK Lead Channel Setting Pacing Pulse Width 0.4 CV DEVICE CHECK Lead Channel Sensing Intrinsic Amplitude 13.100 CV DEVICE CHECK Lead Channel Impedance Value 449 CV DEVICE CHECK Lead Channel RV Pacing Threshold Date 2024-10-10 CV DEVICE CHECK Lead Channel Setting Pacing Amplitude 2.400 CV DEVICE CHECK Lead Channel Setting Pacing Pulse Width 0.4 CV DEVICE CHECK Alex Setting Mode (NBG Code) DDD CV DEVICE CHECK Alex Setting Lower Rate Limit 60 CV DEVICE CHECK Alex Setting AT Mode Switch Rate 160 CV DEVICE CHECK Alex Setting Maximum Tracking Rate 110 CV DEVICE CHECK Alex Setting Maximum Sensor Rate 100 CV DEVICE CHECK Alex Setting PAV Delay 140 CV DEVICE CHECK Alex Setting LUIS EDUARDO Delay 110 CV DEVICE CHECK Date of Service 2024-10-22 CV DEVICE CHECK Anatomical Region Laterality Modality Device Interroga tion 10/10/2024 1:52 AM EDT Impressions 10/15/2024 1:04 PM EDT Normal Remote: No Events * Normal Device Function * Alerts or events: None * Battery: Battery is at 30%, * Sensing, impedance and thresholds reviewed * Programmed parameters reviewed * Presenting rhythm reviewed * Heart Rate Histograms reviewed *Stable Dorothy AF * No significant changes noted Narrative Procedure Note Simon Bhardwaj MD - 10/15/2024 IMPRESSION: Normal Remote: No Events * Normal Device Function * Alerts or events: None * Battery: Battery is at 30%, * Sensing, impedance and thresholds reviewed * Programmed parameters reviewed * Presenting rhythm reviewed * Heart Rate Histograms reviewed *Stable Dorothy AF * No significant changes noted us Simon Bhardwaj MD CV IMPLANTABLE CARDIAC DEVICE PROCEDURES Final Result * MG Mammo Digital Screening w Dave bilat (08/13/2024 1:19 PM EDT) Anatomical Region Laterality Modality Breast Bilateral Mammography 08/17/2024 7:11 AM EDT Impressions 08/17/2024 7:15 AM EDT Benign. BI-RADS CATEGORY: 1 - NEGATIVE RECOMMENDATION: Screening bilateral mammogram is recommended in 1 year. Mammo Location: [facility], [address] [place] [address], [id number], . -------- FINAL REPORT -------- Dictated By: Albina Grace Dictated Date: 08/17/2024 07:11 ET Assigned Physician: Albina Grace Reviewed and Electronically Signed By: Albina Grace Signed Date: 08/17/2024 07:15 ET Workstation ID: [id number] Transcribed By: Self Edit Transcribed Date: 08/17/2024 07:11 ET Narrative 08/17/2024 7:15 AM EDT CLINICAL: 69 years old, Female, routine annual exam. COMPARISON: Mammograms dating back to 02/14/2020 with most recent of 08/06/2023. TECHNIQUE: Bilateral MLO and CC views were obtained digitally with 3-D mammogram (digital breast tomosynthesis). Computer-aided detection was utilized in evaluation of this exam (CAD). FINDINGS: There is no evidence of suspicious mass or architectural distortion. No worrisome calcifications are evident. There has been no significant change from prior exam(s). BREAST DENSITY: B - There are scattered areas of fibroglandular density. Procedure Note Albina Grace MD - 08/17/2024 CLINICAL: 69 years old, Female, routine annual exam. COMPARISON: Mammograms dating back to 02/14/2020 with most recent of08/06/2023. TECHNIQUE: Bilateral MLO and CC views were obtained digitally with 3-Dmammogram (digital breast tomosynthesis). Computer-aided detection wasutilized in evaluation of this exam (CAD). FINDINGS: There is no evidence of suspicious mass or architectural distortion. Noworrisome calcifications are evident. There has been no significantchange from prior exam(s). BREAST DENSITY: B - There are scattered areas of fibroglandular density. IMPRESSION: Benign. BI-RADS CATEGORY: 1 - NEGATIVE RECOMMENDATION: Screening bilateral mammogram is recommended in 1 year. Mammo Location: [facility], [address] [place] [address], [id number], . -------- FINAL REPORT -------- Dictated By: Albina Grace Dictated Date: 08/17/2024 07:11 ET Assigned Physician: Albina Grace Reviewed and Electronically Signed By: Albina Grace Signed Date: 08/17/2024 07:15 ET Workstation ID: [id number] Transcribed By: Self Edit Transcribed Date: 08/17/2024 07:11 ET Darlene Christina MD IMG BI PROCEDURES Final Result * Depression Screening (12/24/2023) Depression Screening abstracted Historical Provider HEALTH MAINTENANCE Final Result * Colonoscopy (06/09/2015) Colonoscopy no interpretation , abstracted Anatomical Region Laterality Modality Other [facility] Provider HEALTH MAINTENANCE Final Result * Hepatitis C Screening (12/18/2012) Hepatitis C Screening abstracted Historical [facility]IN[facility] Final Result from Last 3 Months or Most Recently Relevant to Health Maintenance Insurance [facility]IC[facility] Care Teams Armature Winder Repair Relationship Specialty Start Date End Date Darlene Christina MD [address] [place] [phone] PCP - General Internal Medicine 03/11/24
--- OUTSIDE RECORDS SUMMARY | 2024-12-27 08:56 | XMS_ITS | Encounter Summary ---
Author Organization [facility] Address [address] [place] [address] Care Team Providers Care Air Conditioning Insulation Installer Name Role Phone Darlene Christina MD Primary Care Provider [phone] Reason for Visit * Reason Onset Date Comments Referral 12/16/2024 Encounter Details Date Type Department Care Team (Late st Contact Info) Description 12/16/2024 Telephone Endocrinology - [place] [address] [place] [address] Laura Mccarthy PA [address] [place] [address] Social History Tobacco Use Types Packs/Day Years [...] Orientation Straight 02/09/2024 4: 33 PM EST documented as of this encounter Progress Notes * Marielena Luong RN - 12/16/2024 9:23 AM EDT This is a current pt in endo does not need new referral, last referral done 09/15/24 * Shruthi De Paz - 12/16/2024 9:10 AM EDT Referral Request: What insurance does the patient have today? BCBS HMO Referrals cannot be processed if the insurance is not accurate. If the insurance listed above in red is NO BILLING INFORMATION FOUND FOR THIS ENCOUTNER The patients correct insurance must be obtained and registered in [facility] or their referral can not be processed. Who is calling to request this referral? Laura Mccarthy If the caller is not the patient, what is their name? not applicable Ask the patient WHO referred them to this specialty: Not an initial visit; it is for follow up/continuation of care. Patients PCP is Darlene Christina FIRST and LAST NAME of SPECIALIST PATIENT is seeing: Laura Mccarthy What specialty is this? Endo DIAGNOSIS Patient is being seen for (Not a body part or a procedure): T2 DM Have you seen this SPECIALIST for this PROBLEM/DX before? If YES, when? Yes. 09/16 Have you checked REVIEW or the APPT DESK to see if this referral has already been done or has visits left? yes Is this visit: Follow Up Address of Specialist: [address] [place] [address] Phone # of Specialist: [phone] Fax #: (if applicable): [phone] Does patient have an appointment scheduled?: yes Date of appointment- (including a retro-request): 12/17/24 Is this appointment related to: Not MVA, worker compensation, or surgery related documented in this encounter Plan of Treatment Upcoming Encounters Date Type Department Care Team (Late st Contact Info) Description 01/17/2025 9:00 AM EDT Ancillary Procedure [facility] - [facility] [address] [facility] [address] [place] [address] 01/26/2025 3:00 PM EST Office Visit Endocrinology - [place] [address] [place] [address] Laura Mccarthy PA [address] [place] [address] 03/03/2025 1:30 PM EST Office Visit Adult Medicine [facility] [address] [place] [address] Darlene Christina MD [address] [place], [place] documented as of this encounter Visit Diagnoses Diagnosis Type 2 diabetes mellitus with other specified complication, with long-term current use of insulin (CMS/[facility] V24, CMS/HCC V28)- Primary Encounter for adjustment or management of cardiac device documented in this encounter Care Teams Air Conditioning Insulation Installer Relationship Specialty Start Date End Date Darlene Christina MD [address] [place] [address] PCP - General Internal Medicine 03/11/24 documented as of this encounter
== END 2024-12-23 08:27 | disposition home or self-care (01) ==
LOC: HO.HOSX 08:26
PROVIDERS: Visit Provider Orthopaedic Surgery
DX: Z13.89 Encounter for screening for other disorder (principal)

== ENCOUNTER 2025-01-19 08:26 | Outpatient (REF) | payer MEDICARE, SELFPAY ==
--- OUTSIDE RECORDS SUMMARY | 2025-01-17 09:00 | XMS_ITS | Encounter Summary ---
Author Organization [facility] Address [address] [place] [address] Care Team Providers Care Windlasser Name Role Phone Darlene Christina MD Primary Care Provider [phone] Encounter Details Date Type Department Care Team (Latest Contact Info) Description 01/17/2025 9:00 AM EDT Ancillary Procedure [facility] - [facility] [address] [facility] [address] [place] [phone] Encounter for adjustment or management of cardiac device Social History Tobacco Use Types Packs/Day Years [...] 4:33 PM EST Sexual Orientation Straight 02/09/2024 4 :33 PM EST documented as of this encounter Plan of Treatment Upcoming Encounters Date Type Department Care Team (Late st Contact Info) Description 01/26/2025 3:00 PM EST Office Visit Endocrinology [address] [address] Laura Mccarthy PA [address] [place] [address] 03/03/2025 1:30 PM EST Office Visit Adult Medicine [address] [phone] Darlene Christina MD [address] [place] [address] 01/17/2026 10:30 AM EDT Ancillary Procedure [facility] - [address] [place] [address] Pending Results Name Type Priority Associated Diagnoses Date /Time Cardiac device check - In Clinic Implantable Cardiac Device Routine Encounter for adjustment or management of cardiac device 01/17/2025 9:31 AM EDT Scheduled Orders Name Type Priority Associated Diagnoses Order Schedule Cardiac device check - In Clinic Implantable Cardiac Device Routine Encounter for adjustment or management of cardiac device 1 Occurrences starting 01/14/2024 until 01/13/2026 documented as of this encounter Visit Diagnoses Diagnosis Encounter for adjustment or management of cardiac device Encounter for adjustment or management of cardiac device documented in this encounter Care Teams Windlasser Relationship Specialty Start Date End Date Darlene Christina MD [address] [place] [address] PCP - General Internal Medicine 03/11/24 documented as of this encounter
--- NOTE | ~2025-01-19 | XR_ITS ---
EXAMINATION: XR KNEE, LEFT CLINICAL INFORMATION: M25.562 - Pain in left knee COMPARISON: Radiographs on December 25, 2022 TECHNIQUE: Three views of the left knee. FINDINGS: Status post total knee arthroplasty. Satisfactory alignment of the prosthetic components. No abnormal perihardware lucency. No acute fractures. Small suprapatellar joint effusion. XR/XR knee LT 3V IMPRESSION: Appropriate alignment of the left total knee arthroplasty. Small suprapatellar joint effusion. Electronically signed by: Luis Maurice MD 01/19/2025 09:12 AM EDT
--- OUTSIDE RECORDS SUMMARY | 2025-01-20 09:05 | XMS_ITS | Clinical Summary ---
Author Organization [facility] Address [address] [place] [address] Care Team Providers Care Software Technical Lead Name Role Phone Nikki Bansal Primary Care [...] a day. 0 02/26/2021 Active Probiotic Product (Satya Inti Dharma Immune Defense) CHEW Chew 1 tablet by [...] Immunizations Name Administration Dates Next Due Covid-19 (giddy) Dilution Required 10/22,08/10/2021,02/06/2021,06/18/19 21,06/01/2020 Family History Medical [...] this topic Medical Devices Implanted Type Area Atmospheric Technician Device Identifier Shelf Expiration Date Model / Serial / Lot Cement Bone Surg Simplex Radiopq Stry-Howm 6884-1-351-114 092 - [id number] Implanted:Qty: 1 on 12/20/2021 by Winston Odom MD [place] [facility] Left: Knee [employer] [id number] 02/20/2023 6191-1-010 / / [id number] Cement Bone Surg Simplex Radiopq Stry-Howm 8134-3-893-114 092 - [id number] Implanted:Qty: 1 on 12/20/2021 by Winston Odom MD at [facility] Left: Knee [employer] [id number] 02/20/2023 6191-1-010 / / [id number] Femoral Cmpnt Lt Sz 2 Stry-Howm 1590-T-665-547 021 - [id number] Implanted:Qty: 1 on 12/20/2021 by Winston Odom MD at [facility] Left: Knee [employer] [id number] 05/26/2026 5515-F-201 / / [id number] Knee Tib Baseplt Prim Cmnt Sz3 Stry-Howm 1965-I-246-187 319 - [id number] Implanted:Qty: 1 on 12/20/2021 by Winston Odom MD at [facility] Left: Knee [employer] [id number] 06/14/2026 5520-B-300 / / [id number] Knee Insert Tib Ps X3 Sz3 11mm Stry-Howm 0108-R-432-537 651 - [id number] Implanted:Qty: 1 on 12/20/2021 by Winston Odom MD at [facility] Left: Knee [employer] [id number] 04/16/2025 5532-G-311 / / [id number] Knee Pat Symmetric X3 29x8mm Stry-Howm 0829-C-908-287 334 - [id number] Implanted:Qty: 1 on 12/20/2021 by Winston Odom MD at [facility] Left: Knee [employer] [id number] 08/24/2026 5550-G-298 / / [id number] Peg Fix Femoral Distal Stry-How 6761-A-449-547 704 - [id number] Implanted:Qty: 1 on 12/20/2021 by Winston Odom MD at [facility] Left: Knee [employer] [facility] [id number] 11/21/2026 5575-X-000 / / [id number] Advance Directives For more information, please contact: [phone] Latest Code Status on File Code Status [...] way: discussion with patient . Care Teams Software Technical Lead Relationship Specialty Start Date End Date Nikki Bansal [address] [place] [id number] PCP - General Internal Medicine 01/15/19
--- OUTSIDE RECORDS SUMMARY | 2025-01-20 09:05 | XMS_ITS | Encounter Summary ---
Author Organization [facility] [place] [facility] Address [address] [place] [address] Care Team Providers Care Valet Manager Name Role Phone Darlene Christina MD Primary Care Provider [phone] Reason for Visit * Reason Onset Date Comments Referral 12/16/2024 Encounter Details Date Type Department Care Team (Late st Contact Info) Description 12/16/2024 Telephone Endocrinology - [place] [address] [place] [address] Laura Mccarthy PA [address] [place] [address] Social History Tobacco Use Types Packs/Day Years [...] insurance must be obtained and registered in [facility] or their referral can not be [...] this visit: Follow Up Address of Specialist: [address] [place] [address] Phone # of Specialist: [phone] Fax #: (if applicable): [phone] Does patient have an appointment scheduled?: yes Date of appointment- (including a retro-request): 12/17/24 Is this appointment related to: Not MVA, worker compensation, or surgery related documented in this encounter Plan of Treatment Upcoming Encounters Date Type Department Care Team (Late st Contact Info) Description 01/26/2025 3:00 PM EST Office Visit Endocrinology [address] [address] Laura Mccarthy PA [address] [place] [phone] 03/03/2025 1:30 PM EST Office Visit [facility] [place] - [address], [place] [phone] Darlene Christina MD [address] [place] [address] 01/17/2026 10:30 AM EDT Ancillary Procedure [facility] - [address] [place] [address] documented as of this encounter Visit Diagnoses Diagnosis Type 2 diabetes mellitus with other specified complication, with long-term current use of insulin (CMS/HCC V24, CMS/HCC V28)- Primary Encounter for adjustment or management of cardiac device documented in this encounter Care Teams Valet Manager Relationship Specialty Start Date End Date Darlene Christina MD [address] [place] [address] PCP - General Internal Medicine 03/11/24 documented as of this encounter
--- OUTSIDE RECORDS SUMMARY | 2025-01-20 09:05 | XMS_ITS | Clinical Summary ---
Author Organization [facility] Address [address] [place] [address] Phone Care Team Providers Care Merchandise Presentation Associate Name Role Phone Darlene Christina MD Primary Care Provider [phone] Allergies Active Allergy Reactions Criticality Noted Date [...] DAY 03/18/20 23 Active Lactobac. rhamnosus GG-inulin (Sentons) 10 billion cell -200 mg capsule, sprinkle [...] tions:Diabetes mellitus type 2, with complication, on keno terminal operator insulin pump ([facility] [place] [place] V24, [facility] [place] [place] V28) Change pod every 3 days 10 [...] s:Diabetes mellitus type 2, with complication, on keno terminal operator insulin pump ([facility] [place] [place] V24, [facility] [place] [place] V28) Use to check BS 3 times [...] complication, with long-term current use of insulin ([facility] [place] [place] V24, [facility] [place] [place] V28) DIRECTED 400 each 11 12/18/19 25 Active freestyle (FreeStyle Lancets) 28 gauge lancetsIndicati ons:Type 2 diabetes mellitus with other specified complication, with long-term current use of insulin ([facility] [place] [place] V24, [facility] [place] [place] V28) 1 Stick by route 4 times daily. 400 each 12/18/19 25 Active calcium carbonate-vitam in D3 1,000 mg-20 mcg (800 unit) tablet Take 500 mg by mouth 2 (two) times a day. Active blood-glucose sensor (Dexcom G7 Sensor) deviceIndicatio ns:Type 2 diabetes mellitus with other specified complication, with long-term current use of insulin ([facility] [place] [place] V24, [facility] [place] [place] V28) Change sensor every 10 days 3 [...] mg 56 tablet 01/15/20 25 Active insulin maintenance mechanic millwright cart,aut,G6/7,c ntr (Omnipod 5 G6-G7 Intro Kt,Gen5,) [...] pacemaker in situ 10/20/2024 Permanent atrial fibrillation ([facility] [place] [place] V24, [facility] V28) 09/05/2023 Dupuytren's disease 04/12/2023 Diabetes mellitus type 2, wi th complication, on intermediate insulin pump ([facility] [place] [place] V24, [facility] [place] [place] V28) 01/28/2022 Poorly controlled type 2 arlette betes mellitus with cataract ([facility] [place] [place] V24, [facility] [place] [place] V28) 01/28/2022 Stage 3 chronic kidney disease ([facility] [place] [place] V24, [facility] V28) 11/28/2021 Osteoporosis 12/10/2019 Paroxysmal A-fib ([facility] [place] [place] V24, [facility] [place] [place] V28) 09/23 Overview (01/02/2024): Last Assessment & [...] V24, CMS/HCC V28) 0 04/15/2016 Overview (01/02/2024): [place] Last Assessment & Plan: Due for device [...] neg 02/2015: Ablation Dr. Bhardwaj Ulcerative colitis ([facility] [place] [place] V24, [facility] [place] [place] V28) Hyperlipidemia 03/11/2005 Overview (01/02/2024): Last Assessment & Plan: Last lipid panel 03/13 total cholesterol 141, HDL 38, LDL 73. Continue statin. Encounters Date Type Department Care Team Description 01/17/2025 9:00 AM EDT Ancillary Procedure [facility] [address] [place] [address] Encounter for adjustment or management of cardiac device 12/28/2024 2:15 PM EDT Ancillary Procedure [facility] [address] [place] [address] 12/18/2024 Telephone [facility] - [address] [place] [address] Rhiannon Dias [place] 12/17/2024 2:30 PM EDT Office Visit [address] [phone] Laura Mccarthy PA Type 2 diabetes mellitus with other specified complication, with long-term current use of insulin ([facility] [place] [place] V24, [facility] [place] [place] V28) (Primary Dx); Stage 3 chronic kidney disease, unspecified whether stage 3a or 3b CKD ([facility] [place] [place] V24, [facility] [place] [place] V28); Mixed hyperlipidemia 12/16/2024 Telephone Endocrinology [address] [phone] Laura Mccarthy PA 12/01/2024 1:15 PM EDT Office Visit Adult Medicine [address] [phone] Lilli Epps PA Chronic left-sided low back pain with left-sided sciatica (Primary Dx); Age-related osteoporosis without current pathological fracture; Vitamin D deficiency 11/11/2024 10:00 AM EDT - 11/11/2024 11:59 PM EDT Hospital Encounter [facility] Bone Density [address] [place] [address] Post-menopausal Discharge Disposition: Home or Self Care 10/20/2024 1:00 PM EDT Office Visit [facility] - [address] [place] [address] Mitch Palafox MD Paroxysmal A-fib [...] KNEE; Surgeon: Winston Odom MD; Location: [facility] [place] Service: Orthopedics; Laterality: Left; JOINT REPLACEMENT PROCEDURE:JOINT REPLACEMENT OTHER SURGICAL HISTORY 07/28 PROCEDURE: ND ECHO TRANSTHORAC R-T 2D W/WO M-MODE REC COMP; COMMENT: mild LVH OTHER SURGICAL HISTORY 07/28 PROCEDURE: ND XTRNL ECG & 48 HR RECORD SCAN STOR W/R&I; COMMENT: neg ESOPHAGOGASTRODUODENOSCOPY 05/03/05 PROCEDURE: ND ESOPHAGOGASTRODUODENOSCOPY TRANSORAL DIAGNOSTIC; COMMENT: Lashae souza COLONOSCOPY 05/03/05 PROCEDURE: ND COLONOSCOPY STOMA DX INCLUDING COLLJ SPEC SPX; [...] CMS/HCC V28) DX:Diabetes mellitus, type I I ([facility]) Lumbar back pain DX:Lumbar back pain;COMMENT:s/p injury [...] 3:00 PM EST Office Visit Endocrinology - [address] [phone] Laura Mccarthy PA [address] [place] [address] 03/03/2025 1:30 PM EST Office Visit Adult Medicine [place] - [address] [phone] Darlene Christina MD [address] [place] [address] 01/17/2026 10:30 AM EDT Ancillary Procedure [facility] [address] [facility] [address] [place] [address] Health Maintenance Due Date Last Done Comments [...] this topic Medical Devices Implanted Type Area Sewer Pipe Cleaner Device Identifier Shelf Expiration Date Model / Serial / Lot HerveCariIgnacia Patterson 8 Ar [id number] Implanted: (Quantity not on file) Cardiac Pacemaker [employer] ADAM 8 AR / [id number] / Cement Bone Surg Simplex Radiopq Stry-How [id number] 01020 Implanted:Qt y: 1 on 12/20/2021 by Winston Odom MD Left: Knee [employer] [id number] 02/20/2023 6190-03-24 0 / / [id number] Cement Bone Surg Simplex Radiopq Stry-How 6313-4-124-1 52908 Implanted:Qt y: 1 on 12/20/2021 by Winston Odom MD Left: Knee [employer] [id number] 02/20/2023 6190-03-24 0 / / [id number] Femoral Cmpnt Lt Sz 2 Stry-How 8173-G-293-5 12780 Implanted:Qt y: 1 on 12/20/2021 by Winston Odom MD Left: Knee [employer] [id number] 05/26/2026 5515-F-20 1 / / [id number] Knee Tib Baseplt Prim Cmnt Sz3 Stry-Howm 4399-O-243-1 [id number] Implanted:Qt y: 1 on 12/20/2021 by Winston Odom MD Left: Knee [employer] [id number] 06/14/2026 5520-B-30 0 / / [id number] Knee Insert Tib Ps X3 Sz3 11mm Stry-Howm 5316-C-930-5 62462 Implanted:Qt y: 1 on 12/20/2021 by Winston Odom MD Left: Knee [employer] [id number] 04/16/2025 5532-G-31 1 / / [id number] Knee Pat Symmetric X3 29x8mm Stry-Howm 1035-G-687-2 72209 Implanted:Qt y: 1 on 12/20/2021 by Winston Odom MD Left: Knee [employer] [id number] 08/24/2026 5550-G-29 8 / / [id number] Peg Fix Femoral Distal Stry-Howm 9330-Z-273-5 64255 Implanted:Qt y: 1 on 12/20/2021 by Winston Odom MD Left: Knee [employer] [id number] 11/21/2026 5575-X-00 0 / / [id number] Procedures Procedure Name Priority Date/Time Associated Diagnosis Comments CARDIAC DEVICE CHECK- REMOTE- MURJ Routine 12/28/2024 2:12 PM EDT BASIC METABOLIC PANEL Routine 12/09/2024 11:12 AM EDT Diabetes mellitus type 2, with complication, on keno terminal operator insulin pump (CMS/HCC V24, CMS/HCC V28) HEMOGLOBIN A1C Routine 12/09/2024 11:12 AM EDT Diabetes mellitus type 2, with complication, on keno terminal operator insulin pump (CMS/HCC V24, CMS/HCC V28) LIPID PANEL WITH REFLEX TO DIRECT LDL Routine 12/09/2024 11:12 AM EDT Diabetes mellitus type 2, with complication, on intermediate insulin pump (CMS/HCC V24, CMS/HCC V28) MICROALBUMIN CREATININE URINE RATIO Routine 12/09/2024 11:12 AM EDT Diabetes mellitus type 2, with complication, on keno terminal operator insulin pump (CMS/HCC V24, CMS/HCC V28) VITAMIN D 25 HYDROXY Routine 12/09/2024 11:12 AM EDT Age-related osteoporosis without current pathological fracture Vitamin D deficiency EXTERNAL DIABETIC RETINA EYE EXAM 11/18/2024 BD BONE DENSITY DXA AXIAL SKELETON Routine 11/11/2024 10:37 AM EDT Post-menopausal MG MAMMO DIGITAL SCREENING W DAEV BILAT Routine 08/13/2024 1:19 PM EDT Encounter for screening mammogram for breast cancer HM DEPRESSION SCREENING Routine 12/24/2023 HM COLONOSCOPY Routine 06/09/2015 HM HEPATITIS C SCREENING Routine 12/18/2012 from Last 3 Months or Most Recently Relevant to Health Maintenance Results * Cardiac device check - Remote- MURJ (12/28/2024 2:12 PM EDT) Date Time Interrogation Session [id number] CV DEVICE CHECK Type Interrogation Session RemoteScheduled CV DEVICE CHECK Implantable Pulse Generator Sewer Pipe Cleaner BIO CV DEVICE CHECK Implantable Pulse Generator Type IPG CV DEVICE CHECK Implantable Pulse Generator Model Eluna 8 DR-T CV DEVICE CHECK Implantable Pulse Generator Serial Number [id number] CV DEVICE CHECK Implantable Pulse Generator Implant Date [id number] CV DEVICE CHECK Battery Remaining Percentage 30.00 CV DEVICE CHECK Battery Status Middle of Service CV DEVICE CHECK Alex Statistic RA Percent Paced 1.00 CV DEVICE CHECK Alex Statistic RV Percent Paced 77.00 CV DEVICE CHECK Atrial Tachy Statistic AT/AF [place] Percent 96.00 CV DEVICE CHECK Lead Channel [...] LAB CHEMISTRY METHOD 12/09/2024 2:44 PM EDT [facility] Triglycerides 168(H) 0 - 150 mg/dL LAB CHEMISTRY METHOD 12/09/2024 2:44 PM EDT [facility] HDL 46 >=40 mg/dL LAB CHEMISTRY METHOD 12/09/2024 2:44 PM EDT [facility] LDL Calculated 59 0 - 100 mg/dL LAB CHEMISTRY METHOD 12/09/2024 2:44 PM EDT [facility] Comment:Estimated LDL Calcul ated using equation: Total cholesterol - HDL cholesterol - (Triglycerides/5) VLDL Cholesterol Silas 33.6 mg/dL LAB CHEMISTRY METHOD 12/09/2024 2:44 PM EDT [facility] Non HDL Chol. (LDL+VLDL) 93 <145 mg/dL LAB CHEMISTRY METHOD 12/09/2024 2:44 PM EDT [facility] Chol/HDL Ratio 3.0 0.0 - 4.4 LAB CHEMISTRY METHOD 12/09/2024 2:44 PM EDT [facility] Blood Venous blood specimen / Unknown Venipuncture / Unknown 12/09/2024 11:12 AM EDT 12/09/2024 11:12 AM EDT us Laura NUNEZ LAB BLOOD ORDERABLES Final Result [facility] [address] [place] [address], * (ABNORMAL) Microalbumin creatinine urine ratio (12/09/2024 11:12 AM EDT) Creatinine, Urine 234.0 mg/dL LAB CHEMISTRY METHOD 12/09/2024 3:46 PM EDT [facility] Microalb, Ur 29.5(H) 0.0 - 29.0 mg/L LAB CHEMISTRY METHOD 12/09/2024 3:46 PM EDT [facility] Microalb/Crea t Ratio 13 <30 mg/g creat LAB CHEMISTRY METHOD 12/09/2024 3:46 PM EDT [facility] Urine Urine specimen from urethra / Unknown Non-blood Collection / Unknown 12/09/2024 11:12 AM EDT 12/09/2024 11:12 AM EDT Laura NUNEZ LAB URINE ORDERABLES Final Result [facility] [address] [place] [address], [place] [phone] * Vitamin D 25 hydroxy (12/09/2024 11:12 AM EDT) [facility] Vit D, 25-Hydroxy 48.2 30.0 - 80.0 ng/mL LAB CHEMISTRY METHOD 12/09/2024 3:37 PM EDT [facility] Blood Venous blood specimen / Unknown Venipuncture / Unknown 12/09/2024 11:12 AM EDT 12/09/2024 11:12 AM EDT Lilli NUNEZ LAB BLOOD ORDERABLES Final Res ult Performing Organization Address City/[facility]/ZIP Co de Phone Number [facility] [address] [place] [address], [place] [phone] * (ABNORMAL) Hemoglobin A1c (12/09/2024 11:12 AM EDT) [facility] Hemoglobin A1C 7.8(H) <6.5 % LAB CHEMISTRY METHOD 12/09/2024 9:57 PM EDT [facility] Mean Bld Glu Estim. 177 mg/dL LAB CHEMISTRY METHOD 12/09/2024 9:57 PM EDT [facility] Blood Venous blood specimen / Unknown Venipuncture / Unknown 12/09/2024 11:12 AM EDT 12/09/2024 11:12 AM EDT Laura NUNEZ LAB BLOOD ORDERABLES Final Result Performing Organization Address City/[facility]/ZIP Co de Phone Number [facility] [address] [place] [address], [place] [phone] * (ABNORMAL) Basic metabolic panel (12/09/2024 11:12 AM EDT) Sodium 137 133 - 145 mmol/L LAB CHEMISTRY METHOD 12/09/2024 2:44 PM [facility] Potassium 4.1 3.5 - 5.5 mmol/L LAB CHEMISTRY METHOD 12/09/2024 2:44 PM [facility] Chloride 102 96 - 110 mmol/L LAB CHEMISTRY METHOD 12/09/2024 2:44 PM [facility] CO2 28 21 - 32 mmol/L LAB CHEMISTRY METHOD 12/09/2024 2:44 PM [facility] Anion Gap 7 3 - 11 LAB CHEMISTRY METHOD 12/09/2024 2:44 PM [facility] Glucose 132(H) 70 - 100 mg/dL LAB CHEMISTRY METHOD 12/09/2024 2:44 PM [facility] BUN 15 5 - 25 mg/dL LAB CHEMISTRY METHOD 12/09/2024 2:44 PM [facility] Creatinine 1.05 0.50 - 1.10 mg/dL LAB CHEMISTRY METHOD 12/09/2024 2:44 PM [facility] eGFR 57(L) >=60 mL/min/1. 73m2 LAB CHEMISTRY METHOD 12/09/2024 2:44 PM [facility] Comment:Calculation based on the Chronic Kidney Disease Epidemiology Collaboration (CKD-EPI) equation refit without adjustment for race. BUN/Creatinine Ratio 14.3 LAB CHEMISTRY METHOD 12/09/2024 2:44 PM [facility] Calcium 9.1 8.5 - 10.5 mg/dL LAB CHEMISTRY METHOD 12/09/2024 2:44 PM [facility] Blood Venous blood specimen / Unknown Venipuncture / Unknown 12/09/2024 11:12 AM EDT 12/09/2024 11:12 AM EDT Laura NUNEZ LAB BLOOD ORDERABLES Final Result [facility] [address] [place] [address], * External Diabetic Retina Eye Exam Report [...] probability of hip fracture of 11.6%. Code 33865 -------- FINAL REPORT -------- Dictated By: Reid Mckay Dictated Date: 11/11/2024 10:44 ET Assigned Physician: Reid Mckay Reviewed and Electronically Signed By: Reid Mckay Signed Date: 11/11/2024 10:45 ET Workstation ID: [id number] Transcribed By: Self Edit Transcribed Date: 11/11/2024 [...] density of the femurs bilaterally is 0.717 gm/ll5lbsyp is 71% of that of young normals [...] probability of hip fracture of 11.6%. Code 07947 -------- FINAL REPORT -------- Dictated By: Reid Mckay Dictated Date: 11/11/2024 10:44 ET Assigned Physician: Reid Mckay Reviewed and Electronically Signed By: Reid Mckay Signed Date: 11/11/2024 10:45 ET Workstation ID: [id number] Transcribed By: Self Edit Transcribed Date: 11/11/2024 10:44 ET Laura NUNEZ IMIlsa DXA PROCEDURES Final Re sult * MG Mammo Digital Screening w Dave bilat (08/13/2024 1:19 PM EDT) Anatomical Region Laterality Modality Breast Bilateral Mammography 08/17/2024 7:11 AM EDT Impressions 08/17/2024 7:15 AM EDT Benign. BI-RADS CATEGORY: 1 - NEGATIVE RECOMMENDATION: Screening bilateral mammogram is recommended in 1 year. Mammo Location: [facility], [address] [place] [address], [id number], . -------- FINAL REPORT -------- Dictated By: Albina Grace Dictated Date: 08/17/2024 07:11 ET Assigned Physician: Albina Grace Reviewed and Electronically Signed By: Albina Grace Signed Date: 08/17/2024 07:15 ET Workstation ID: [id number] Transcribed By: Self Edit Transcribed Date: 08/17/2024 [...] is recommended in 1 year. Mammo Location: [facility], [address] [place] [address], [id number], . -------- FINAL REPORT -------- Dictated By: Albina Grace Dictated Date: 08/17/2024 07:11 ET Assigned Physician: Albina Grace Reviewed and Electronically Signed By: Albina Grace Signed Date: 08/17/2024 07:15 ET Workstation ID: [id number] Transcribed By: Self Edit Transcribed Date: 08/17/2024 07:11 ET Darlene Christina MD IMG BI PROCEDURES Final Result * Depression Screening (12/24/2023) Pathologist [facility] Depression Screening abstracted Historical Provider HEALTH MAINTENANCE Final Result * Colonoscopy (06/09/2015) [facility] Colonoscopy no interpretation , abstracted Anatomical Region Laterality Modality Other Historical Provider HEALTH MAINTENANCE Final Result * Hepatitis C Screening (12/18/2012) [facility] Hepatitis C Screening abstracted Historical Provider HEALTH MAINTENANCE Final Result from Last 3 Months or Most Recently Relevant to Health Maintenance Insurance MEDICARE [facility] Care Teams Merchandise Presentation Associate Relationship Specialty Start Date End Date Darlene Christina MD [address] [place] [phone] PCP - General Internal Medicine 03/11/24
== END 2025-01-19 08:27 | disposition home or self-care (01) ==
LOC: HO.HOSX 08:26
PROVIDERS: Visit Provider Orthopaedic Surgery
DX: M25.562 Pain in left knee (principal); Z96.652 Presence of left artificial knee joint
CPT/HCPCS: 73562; 99212

== ENCOUNTER 2025-01-19 08:37 | Outpatient (AMB) | payer MEDICARE, BC, SELFPAY ==
--- OUTSIDE RECORDS SUMMARY | 2025-01-17 09:00 | XMS_ITS | Encounter Summary ---
Author Organization [facility] Address [address] [place] [address] Care Team Providers Care Rehab/Pre Vocational Counselor Name Role Phone Darlene Christina MD Primary Care Provider [phone] Encounter Details Date Type Department Care Team (Latest Contact Info) Description 01/17/2025 9:00 AM EDT Ancillary Procedure [facility] - [facility] [address] [facility] [address] [place] [phone] Encounter for adjustment or management of cardiac [...] 01/26/2025 3:00 PM EST Office Visit Endocrinology [address] [address] Laura Mccarthy PA [address] [place] [address] 03/03/2025 1:30 PM EST Office Visit Adult Medicine [address] [phone] Darlene Christina MD [address] [place] [address] 01/17/2026 10:30 AM EDT Ancillary Procedure [facility] - [address] [place] [address] Pending Results Name Type Priority Associated Diagnoses [...] device documented in this encounter Care Teams Rehab/Pre Vocational Counselor Relationship Specialty Start Date End Date Darlene Christina MD [address] [place] [address] PCP - General Internal Medicine 03/11/24 documented as of this encounter
--- NOTE | 2025-01-19 08:48 | MHC.OFFVIS ---
Intake Visit Reasons: OV - LT knee pain Intake Note: Rhina is a 69 year old female who presents with complaints of mild intermittent discomfort in her left knee after undergoing left total knee replacement surgery on 12/20/2021. She continues with her home exercise program. She denies any fevers or chills. She denies any locking or giving way. Allergies Sulfa (Sulfonamide Antibiotics) Allergy (Unknown, Verified 12/25/23 13:11) Nausea Medication List - Last Reconciled 01/19/25 by Winston Odom MD alendronate 70 mg PO QWEEK blood sugar diagnostic (FreeStyle Lite Strips) As directed diltiazem HCl CD mg PO insulin pump cart,auto,BT-cntr (Omnipod 5 G6 Intro Kit (Gen 5) subcutaneous cartridge with controller) As directed insulin pump cart,automated,BT (Omnipod 5 G6 Pods (Gen 5) subcutaneous cartridge) As directed insulin pump cart,cont inf,RF (Omnipod Classic Pods (Gen 3) subcutaneous cartridge) As directed insulin regular hum U-500 conc (Humulin R U-500 (Concentrated) Insulin) units subcut loratadine 10 mg PO DAILY morphine ER 15 mg PO BID PRN omeprazole 20 mg PO DAILY rivaroxaban (Xarelto) 20 mg PO DAILY simvastatin 20 mg PO BEDTIME Physical Exam Const Other: Well-nourished well-developed very friendly female awake alert and oriented x3 in no acute distress Extrem Other: Left knee examination shows that the surgical incision is well healed, no erythema, full active extension and flexion to 120 degrees, her patella tracks well Results Reviewed Results Reviewed: X-rays of the patient's left knee taken today show a total knee arthroplasty in good position with no signs of loosening, no acute bony abnormalities Assessment & Plan Assessment & Plan (1) Left knee pain: Code(s): M25.562 - Pain in left knee Category: Medical Plan Ms. Hammond continues to do well after undergoing left total knee replacement surgery on 12/20/2021. She will continue with her home exercise program. She does know to take antibiotics before any dental work. She will contact me prior to her annual follow-up appointment should any questions or concerns arise. Feel free to call me at any time should questions regarding her orthopedic management arise. I spent 20 minutes in reviewing the patient's records and imaging studies, seeing the patient and documenting in the medical record. Orders: Orders XR knee LT 3V Today M25.562 - Pain in left knee Coding Level of Care Code Est Pt Level 3 (46093) Complex EM visit Add On G2211 Diagnoses Left knee pain M25.562
--- OUTSIDE RECORDS SUMMARY | 2025-01-19 09:13 | XMS_ITS | Encounter Summary ---
Author Organization [facility] Address [address] [place] [address] Care Team Providers Care Anesthesiology Physician Name Role Phone Darlene Christina MD Primary Care Provider [phone] Reason for Visit * Reason Onset Date Comments Referral 12/16/2024 Encounter Details Date Type Department Care Team (Late st Contact Info) Description 12/16/2024 Telephone Endocrinology - [place] [address] [place] [address] Laura Mccarthy PA [address] [place] [address] Social History Tobacco Use Types Packs/Day Years [...] insurance must be obtained and registered in [facility] or their referral can not be [...] this visit: Follow Up Address of Specialist: [address] [place] [address] Phone # of Specialist: [phone] Fax #: (if applicable): [phone] Does patient have an appointment scheduled?: yes Date of appointment- (including a retro-request): 12/17/24 Is this appointment related to: Not MVA, worker compensation, or surgery related documented in this encounter Plan of Treatment Upcoming Encounters Date Type Department Care Team (Late st Contact Info) Description 01/26/2025 3:00 PM EST Office Visit Endocrinology [address] [address] Laura Mccarthy PA [address] [place] [address] 03/03/2025 1:30 PM EST Office Visit Adult Medicine [place] - [address], [place] [phone] Darlene Christina MD [address] [place] [address] 01/17/2026 10:30 AM EDT Ancillary Procedure [facility] - [address] [place] [address] documented as of this encounter Visit Diagnoses Diagnosis Type 2 diabetes mellitus with other specified complication, with long-term current use of insulin (CMS/HCC V24, CMS/HCC V28)- Primary Encounter for adjustment or management of cardiac device documented in this encounter Care Teams Anesthesiology Physician Relationship Specialty Start Date End Date Darlene Christina MD [address] [place] [address] PCP - General Internal Medicine 03/11/24 documented as of this encounter
--- OUTSIDE RECORDS SUMMARY | 2025-01-19 09:13 | XMS_ITS | Clinical Summary ---
Author Organization [facility] Address [address] [place] [address] Care Team Providers Care Stonework Supervisor Name Role Phone Nikki Bansal Primary Care [...] a day. 0 02/26/2021 Active Probiotic Product ([employer]) CHEW Chew 1 tablet by [...] Immunizations Name Administration Dates Next Due Covid-19 ([employer]) Dilution Required 10/22,08/10/2021,02/06/2021,06/18/19 21,06/01/2020 Family History Medical [...] this topic Medical Devices Implanted Type Area Licensed Appraiser Device Identifier Shelf Expiration Date Model / Serial / Lot Cement Bone Surg Simplex Radiopq Stry-Howm 0556-5-718-114 092 - [id number] Implanted:Qty: 1 on 12/20/2021 by Winston Odom MD at [facility] [facility] Left: Knee [employer] [id number] 02/20/2023 6191-1-010 / / [id number] Cement Bone Surg Simplex Radiopq Stry-Howm 8634-1-505-114 092 - [id number] Implanted:Qty: 1 on 12/20/2021 by Winston Odom MD at [facility] Left: Knee [employer] [id number] 02/20/2023 6191-1-010 / / [id number] Femoral Cmpnt Lt Sz 2 Stry-Howm 4122-J-562-547 021 - [id number] Implanted:Qty: 1 on 12/20/2021 by Winston Odom MD at [facility] Left: Knee [employer] [id number] 05/26/2026 5515-F-201 / / [id number] Knee Tib Baseplt Prim Cmnt Sz3 Stry-Howm 5512-X-764-187 319 - [id number] Implanted:Qty: 1 on 12/20/2021 by Winston Odom MD at [facility] Left: Knee [employer] [id number] 06/14/2026 5520-B-300 / / [id number] Knee Insert Tib Ps X3 Sz3 11mm Stry-Howm 7891-I-537-537 651 - [id number] Implanted:Qty: 1 on 12/20/2021 by Winston Odom MD at [facility] Left: Knee [employer] [id number] 04/16/2025 5532-G-311 / / [id number] Knee Pat Symmetric X3 29x8mm Stry-Howm 6427-I-297-287 334 - [id number] Implanted:Qty: 1 on 12/20/2021 by Winston Odom MD at [facility] Left: Knee [employer] [id number] 08/24/2026 5550-G-298 / / [id number] Peg Fix Femoral Distal Stry-How 4818-W-951-547 704 - [id number] Implanted:Qty: 1 on 12/20/2021 by Winston Odom MD at [facility] Left: Knee [employer] [id number] 11/21/2026 5575-X-000 / / [id number] Advance Directives For more information, please contact: [phone] Latest Code Status on File Code Status [...] way: discussion with patient . Care Teams Stonework Supervisor Relationship Specialty Start Date End Date Nikki Bansal [address] [place] [id number] PCP - General Internal Medicine 01/15/19
--- OUTSIDE RECORDS SUMMARY | 2025-01-19 09:14 | XMS_ITS ---
Author Name [facility] Organization Unknown Encounters Encounter Type Encounter Reason Primary Diagnosis Location Date Ambulatory [facility] [place] 12/19/2022 Ambulatory [facility] [place] 11/26/2022 Care Team Organization Name Specialty Phone Email Start Date End Da te [facility] 11/10/2024 [facility] Darlene Christina Primary Care 11/28/2022 024 [facility] MARIELY Garvin Primary Care 07/29/202210/22 [facility] [place] NIKKI BANSAL Primary Care 02/21/2022 11/10/2023 [facility] Nikki Bansal Primary Care 01/29/2022
--- OUTSIDE RECORDS SUMMARY | 2025-01-19 09:14 | XMS_ITS | Clinical Summary ---
Author Organization [address] [facility] Address [address] [place] [address] Phone Care Team Providers Care Clear Coat Sprayer Name Role Phone Darlene Christina MD Primary Care Provider [phone] Allergies Active Allergy Reactions Criticality Noted Date Comments Adhesive Tape-Silicones Rash Low 06/14/2021 Fluorouracil-Adhesive Bandage 2023 Latex 03/12/2024 Sulfa (Sulfonamide Antibiotics) Low 01/02/2024 Other Reaction(s): Other (See Comments) Stomach pain Sulfacetamide Unknown Low 03/11/2005 GI pain Medications insulin pump cart,automated, BT (OMNIPOD 5 G6 PODS, GEN 5, SUBQ) 1 Device by Does not apply route every 3 days. Dx Code E11.8 12/07/19 23 Active alendronate (FOSAMAX) 70 mg tablet TAKE 1 TABLET BY MOUTH WEEKLY 08/21/19 24 Active triamcinolone (KENALOG) 0.025 % cream APPLY SPARINGLY TO AFFECTED AREAS TWICE A DAY 03/18/20 23 Active Lactobac. rhamnosus GG-inulin ([employer]) 10 billion cell -200 mg capsule, sprinkle Take by mouth. Active loratadine (CLARITIN) 10 mg tablet Take 1 Tab by mouth daily for 360 days. 07/29/19 19 Active omeprazole (PRILOSEC) 20 mg tablet,delayed release (DR/EC) Take 1 tablet (20 mg total) by mouth 1 (one) time each day. Active CHOLECALCIFEROL , VITAMIN D3, ORAL Take 1 Capsule by mouth daily Active glucagon (Gvoke HypoPen 2-Pack) 0.5 mg/0.1 mL auto-injector Inject 0.1 mL under the skin if needed (low blood sugar). 0.2 mL 5 02/12/20 24 Active propylene glycol/peg 400/PF (SYSTANE, PF, OPHT) Administer 1 drop into affected eye(s) if needed. 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 20 mL 5 11/03/19 25 Active alcohol swabs pads, medicatedIndica tions:Type 2 diabetes mellitus with other specified complication, with long-term current use of insulin ([facility] V24, [facility] V28) DIRECTED 400 each 11 12/18/19 25 Active freestyle (FreeStyle Lancets) 28 gauge lancetsIndicati ons:Type 2 diabetes mellitus with other specified complication, with long-term current use of insulin ([facility] V24, [facility] V28) 1 Stick by route 4 times daily. 400 each 12/18/19 25 Active calcium carbonate-vitam in D3 1,000 mg-20 mcg (800 unit) tablet Take 500 mg by mouth 2 (two) times a day. Active blood-glucose sensor (Dexcom G7 Sensor) deviceIndicatio ns:Type 2 diabetes mellitus with other specified complication, with long-term current use of insulin ([facility] V24, [facility] V28) Change sensor every 10 days 3 each 12/18/19 Active dilTIAZem CD (CARDIZEM CD) 180 mg 24 hr capsule TAKE 2 CAPSULES BY MOUTH EVERY DAY 180 capsule 1 12/29/19 25 Active morphine (MS CONTIN) 15 mg 12 hr tablet Take 1 tablet (15 mg total) by mouth 2 (two) times a day. Max Daily Amount: 30 mg 56 tablet 01/15/20 25 Active insulin mural artist cart,aut,G6/7,c ntr (Omnipod 5 G6-G7 Intro Kt,Gen5,) cartridge Use daily with insulin pods 1 each 01/19/20 25 Active dilTIAZem CD (CARDIZEM CD) 180 mg 24 hr capsule TAKE 2 CAPSULES BY MOUTH EVERY DAY 180 capsule 1 06/15/19 25 025 Discontinued morphine (MS CONTIN) 15 mg 12 hr tablet Take 1 tablet (15 mg total) by mouth 2 (two) times a day. Max Daily Amount: 30 mg 56 tablet 12/15/19 25 025 Discontinued(R eorder) Active Problems Problem Noted Date Diagnosed Date Cardiac pacemaker in situ 10/20/2024 Permanent atrial fibrillation ([facility] V24, [facility] V28) 09/05/2023 Dupuytren's disease 04/12/2023 Diabetes mellitus type 2, wi th complication, on nursing home insulin pump ([facility] V24, [facility] V28) 01/28/2022 Poorly controlled type 2 arlette betes mellitus with cataract ([facility] V24, [facility] V28) 01/28/2022 Stage 3 chronic kidney disease ([facility] V24, [facility] V28) 11/28/2021 Osteoporosis 12/10/2019 Paroxysmal A-fib ([facility] V24, [facility] V28) 09/23 Overview (01/02/2024): Last Assessment & [...] pain with sciatica 06/18/2016 Sick sinus syndrome (CMS/HCC V24, CMS/HCC V28) 0 04/15/2016 Overview (01/02/2024): [place] Last Assessment & Plan: Due for device [...] colon without hemorrhage 08/23 Paroxysmal supraventricular tachycardia (CMS/HCC V24) 05/23/2005 Overview (01/02/2024): Stress test 06/27 neg 02/2015: Ablation Dr. Bhardwaj Ulcerative colitis ([facility] V24, [facility] V28) Hyperlipidemia 03/11/2005 Overview (01/02/2024): Last Assessment & Plan: Last lipid panel 03/13 total cholesterol 141, HDL 38, LDL 73. Continue statin. Encounters Date Type Department Care Team Description 01/17/2025 9:00 AM EDT Ancillary Procedure [facility] [address] [address] [place] [address] Encounter for adjustment or management of cardiac device 12/28/2024 2:15 PM EDT Ancillary Procedure [facility] [address] [place] [address] 12/18/2024 Telephone [facility] [address] [place] [address] Rhiannon Dias MS 12/17/2024 2:30 PM EDT Office Visit [address] [phone] Laura Mccarthy PA Type 2 diabetes mellitus with other specified complication, with long-term current use of insulin ([facility] V24, [facility] V28) (Primary Dx); Stage 3 chronic kidney disease, unspecified whether stage 3a or 3b CKD ([facility] V24, [facility] V28); Mixed hyperlipidemia 12/16/2024 Telephone Endocrinology [address] [phone] Laura Mccarthy PA 12/01/2024 1:15 PM EDT Office Visit Adult Medicine [address] [phone] Lilli Epps PA Chronic left-sided low back pain with left-sided sciatica (Primary Dx); Age-related osteoporosis without current pathological fracture; Vitamin D deficiency 11/11/2024 10:00 AM EDT - 11/11/2024 11:59 PM EDT Hospital Encounter [facility] Bone Density [address] [place] [address] Post-menopausal Discharge Disposition: Home or Self Care 10/20/2024 1:00 PM EDT Office Visit [facility] [address] [place] [address] Mitch Palafox MD Paroxysmal A-fib (CMS/HCC V24, CMS/HCC V28) (Primary Dx); Sick sinus syndrome (CMS/HCC V24, CMS/HCC V28); Obstructive sleep apnea syndrome; Cardiac pacemaker in situ from Last 3 Months Immunizations Immunization Administration [...] eservative (Fluzone; Afluria) 6mo and older 06/18/2016,02/03/2014,01/01/2013,01/13,05/14/2011,11/29/2009,12/16/2008 Pfizer SARS-CoV-2 COVID-19, mRNA, LNP-S, preservative free 03/10/2022,02/06/2021,06/17/2020,05/26 [...] REFRACTIVE SURGERY PROCEDURE:REFRACTIVE SURGERY TOTAL KNEE ARTHROPLASTY Left PROCEDURE:TOTAL KNEE ARTHROPLASTY;COMMENT:Procedure : REPLACEMENT TOTAL KNEE; Surgeon: Winston Odom MD; Location: [facility] [place] Service: Orthopedics; Laterality: Left; JOINT REPLACEMENT PROCEDURE:JOINT REPLACEMENT OTHER SURGICAL HISTORY 07/28 PROCEDURE: WA ECHO TRANSTHORAC R-T 2D W/WO M-MODE REC COMP; COMMENT: mild LVH OTHER SURGICAL HISTORY 07/28 PROCEDURE: WA XTRNL ECG & 48 HR RECORD SCAN STOR W/R&I; COMMENT: neg ESOPHAGOGASTRODUODENOSCOPY 05/03/05 PROCEDURE: WA ESOPHAGOGASTRODUODENOSCOPY TRANSORAL DIAGNOSTIC; COMMENT: Lashae souza COLONOSCOPY 05/03/05 PROCEDURE: WA COLONOSCOPY STOMA DX INCLUDING COLLJ SPEC SPX; [...] s Hiatal hernia DX:Hiatal hernia Ulcerative colitis (CMS/HCC V24, CMS/HCC V28) 2007 DX:Ulcerative colitis (HCC) Hypertension DX:Hypertension Hyperlipidemia DX:Hyperlipidemi a Arrhythmia DX:Arrhythmia;CO MMENT:AFIB Migraine headache DX:Migraine he adache;COMMENT:Hx Diabetes mellitus, type II ( CMS/HCC V24, CMS/HCC V28) DX:Diabetes mellitus, type I I ([facility]) Lumbar back pain DX:Lumbar back pain;COMMENT:s/p [...] 3:00 PM EST Office Visit Endocrinology - [address] [phone] Laura Mccarthy PA [address] [place] [address] 03/03/2025 1:30 PM EST Office Visit Adult Medicine [place] - [address] [phone] Darlene Christina MD [address] [place] [address] 01/17/2026 10:30 AM EDT Ancillary Procedure [facility] [address] [facility] [address] [place] [address] Health Maintenance Due Date Last Done Comments Diabetes: Annual Foot Exam 01/16/1964 Zoster Vaccines (1 of 2) 03/10/2015 01/13/2015 Falls Risk Assessment 02/28/2022 Social Influencers of Health Screening 02/28/2022 Depression Screening 03/24/2024 12/24/2023 COVID-19 Vaccine (9 - Pfizer risk 2023- season) 2024 02/17/2024, 02/12/2023, 03/10/2022, Additional history [...] this topic Medical Devices Implanted Type Area Turkish Line Attendant Device Identifier Shelf Expiration Date Model / Serial / Lot HerveCariIgnacia Patterson 8 Ar [id number] Implanted: (Quantity not on file) Cardiac Pacemaker [employer] ADAM 8 AR / [id number] / Cement Bone Surg Simplex Radiopq Stry-How [id number] Implanted:Qt y: 1 on 12/20/2021 by Winston Odom MD Left: Knee [employer] [id number] 02/20/2023 6190-03-24 0 / / [id number] Cement Bone Surg Simplex Radiopq Stry-How [id number] Implanted:Qt y: 1 on 12/20/2021 by Winston Odom MD Left: Knee [employer] [id number] 02/20/2023 6190-03-24 0 / / [id number] Femoral Cmpnt Lt Sz 2 Stry-How 6269-B-[id number] Implanted:Qt y: 1 on 12/20/2021 by Winston Odom MD Left: Knee [employer] [id number] 05/26/2026 5515-F-20 1 / / [id number] Knee Tib Baseplt Prim Cmnt Sz3 Stry-Howm 1329-C-[id number] [id number] Implanted:Qt y: 1 on 12/20/2021 by Winston Odom MD Left: Knee [employer] [id number] 06/14/2026 5520-B-30 0 / / [id number] Knee Insert Tib Ps X3 Sz3 11mm Stry-Howm 1949-Q-[id number] Implanted:Qt y: 1 on 12/20/2021 by Winston Odom MD Left: Knee [employer] [id number] 04/16/2025 5532-G-31 1 / / [id number] Knee Pat Symmetric X3 29x8mm Stry-Howm 2992-X-[id number] Implanted:Qt y: 1 on 12/20/2021 by Winston Odom MD Left: Knee [employer] [id number] 08/24/2026 5550-G-29 8 / / [id number] Peg Fix Femoral Distal Stry-Howm 1083-[id number] Implanted:Qt y: 1 on 12/20/2021 by Winston Odom MD Left: Knee [employer] [id number] 11/21/2026 5575-X-00 0 / / [id number] Procedures Procedure Name Priority Date/Time Associated Diagnosis Comments CARDIAC DEVICE CHECK- REMOTE- MURJ Routine 12/28/2024 2:12 PM EDT BASIC METABOLIC PANEL Routine 12/09/2024 11:12 AM EDT Diabetes mellitus type 2, with complication, on dedicated intermodal truck driver insulin pump (CMS/HCC V24, CMS/HCC V28) HEMOGLOBIN A1C Routine 12/09/2024 11:12 AM EDT Diabetes mellitus type 2, with complication, on dedicated intermodal truck driver insulin pump (CMS/HCC V24, CMS/HCC V28) LIPID PANEL WITH REFLEX TO DIRECT LDL Routine 12/09/2024 11:12 AM EDT Diabetes mellitus type 2, with complication, on nursing home insulin pump (CMS/HCC V24, CMS/HCC V28) MICROALBUMIN CREATININE URINE RATIO Routine 12/09/2024 11:12 AM EDT Diabetes mellitus type 2, with complication, on dedicated intermodal truck driver insulin pump (CMS/HCC V24, CMS/HCC V28) VITAMIN D 25 HYDROXY Routine 12/09/2024 11:12 AM EDT Age-related osteoporosis without current pathological fracture Vitamin D deficiency EXTERNAL DIABETIC RETINA EYE EXAM 11/18/2024 BD BONE DENSITY DXA AXIAL SKELETON Routine 11/11/2024 10:37 AM EDT Post-menopausal MG MAMMO DIGITAL SCREENING W DAVE BILAT Routine 08/13/2024 1:19 PM EDT Encounter for screening mammogram for breast cancer HM DEPRESSION SCREENING Routine 12/24/2023 HM COLONOSCOPY Routine 06/09/2015 HM HEPATITIS C SCREENING Routine 12/18/2012 from Last 3 Months or Most Recently Relevant to Health Maintenance Results * Cardiac device check - Remote- MURJ (12/28/2024 2:12 PM EDT) Date Time Interrogation Session [id number] CV DEVICE CHECK Type Interrogation Session RemoteScheduled CV DEVICE CHECK Implantable Pulse Generator Turkish Line Attendant BIO CV DEVICE CHECK Implantable Pulse Generator Type IPG CV DEVICE CHECK Implantable Pulse Generator Model Eluna 8 DR-T CV DEVICE CHECK Implantable Pulse Generator Serial Number [id number] CV DEVICE CHECK Implantable Pulse Generator Implant Date [id number] CV DEVICE CHECK Battery Remaining Percentage 30.00 CV DEVICE CHECK Battery Status Middle of Service CV DEVICE CHECK Alex Statistic RA Percent Paced 1.00 CV DEVICE CHECK Alex Statistic RV Percent Paced 77.00 CV DEVICE CHECK Atrial Tachy Statistic AT/AF [place] Percent 96.00 CV DEVICE CHECK Lead Channel Sensing Intrinsic Amplitude 2.000 CV DEVICE CHECK Lead Channel Setting Sensing Sensitivity 0.50 CV DEVICE CHECK Lead Channel Impedance Value 546 CV DEVICE CHECK Lead Channel RA Pacing Threshold Date 2024-12-20 CV DEVICE CHECK Lead Channel Setting Pacing Amplitude 3.600 CV DEVICE CHECK Lead Channel Setting Pacing Pulse Width 0.4 CV DEVICE CHECK Lead Channel Sensing Intrinsic Amplitude 12.800 CV DEVICE CHECK Lead Channel Impedance Value 449 CV DEVICE CHECK Lead Channel RV Pacing Threshold Date 2024-12-20 CV DEVICE CHECK Lead Channel Setting Pacing [...] 110 CV DEVICE CHECK Date of Service 2025-01-21 CV DEVICE CHECK Anatomical Region Laterality Modality Device Interroga tion 12/20/2024 1:38 AM EDT Impressions 12/28/2024 2:06 PM EDT Normal Remote: No Events * Normal Device Function * Alerts or events: None * Battery: Battery is at 30%, * Sensing, impedance and thresholds reviewed * Programmed parameters reviewed * Presenting rhythm reviewed * Heart Rate Histograms reviewed * No significant changes noted Narrative Procedure Note Simon Bhardwaj MD - 12/28/2024 IMPRESSION: Normal Remote: No Events * Normal Device Function * Alerts or events: None * Battery: Battery is at 30%, * Sensing, impedance and thresholds reviewed * Programmed parameters reviewed * Presenting rhythm reviewed * Heart Rate Histograms reviewed * No significant changes noted Simon Bhardwaj MD CV IMPLANTABLE CARDIAC DEVICE PROCEDURES Final Result * (ABNORMAL) Lipid panel with reflex to direct LDL (12/09/2024 11:12 AM EDT) Cholesterol 139 0 - 200 mg/dL LAB CHEMISTRY METHOD 12/09/2024 2:44 PM EDT [facility] Triglycerides 168(H) 0 - 150 mg/dL LAB CHEMISTRY METHOD 12/09/2024 2:44 PM EDT [facility] HDL 46 >=40 mg/dL LAB CHEMISTRY METHOD 12/09/2024 2:44 PM EDT [facility] LDL Calculated 59 0 - 100 mg/dL LAB CHEMISTRY METHOD 12/09/2024 2:44 PM EDT [facility] Comment:Estimated LDL Calcul ated using equation: Total cholesterol - HDL cholesterol - (Triglycerides/5) VLDL Cholesterol Silas 33.6 mg/dL LAB CHEMISTRY METHOD 12/09/2024 2:44 PM EDT [facility] Non HDL Chol. (LDL+VLDL) 93 <145 mg/dL LAB CHEMISTRY METHOD 12/09/2024 2:44 PM EDT [facility] Chol/HDL Ratio 3.0 0.0 - 4.4 LAB CHEMISTRY METHOD 12/09/2024 2:44 PM EDT [facility] Blood Venous blood specimen / Unknown Venipuncture / Unknown 12/09/2024 11:12 AM EDT 12/09/2024 11:12 AM EDT us Laura NUNEZ LAB BLOOD ORDERABLES Final Result [facility] [address] [place] [address], * (ABNORMAL) Microalbumin creatinine urine ratio (12/09/2024 11:12 AM EDT) Creatinine, Urine 234.0 mg/dL LAB CHEMISTRY METHOD 12/09/2024 3:46 PM EDT [facility] Microalb, Ur 29.5(H) 0.0 - 29.0 mg/L LAB CHEMISTRY METHOD 12/09/2024 3:46 PM EDT [facility] Microalb/Crea t Ratio 13 <30 mg/g creat LAB CHEMISTRY METHOD 12/09/2024 3:46 PM EDT [facility] Urine Urine specimen from urethra / Unknown Non-blood Collection / Unknown 12/09/2024 11:12 AM EDT 12/09/2024 11:12 AM EDT Laura NUNEZ LAB URINE ORDERABLES Final Result [facility] [address] [place] [address], [place] [phone] * Vitamin D 25 hydroxy (12/09/2024 11:12 AM EDT) [facility] Vit D, 25-Hydroxy 48.2 30.0 - 80.0 ng/mL LAB CHEMISTRY METHOD 12/09/2024 3:37 PM EDT [facility] Blood Venous blood specimen / Unknown Venipuncture / Unknown 12/09/2024 11:12 AM EDT 12/09/2024 11:12 AM EDT Lilli NUNEZ LAB BLOOD ORDERABLES Final Res ult Performing Organization Address City/[facility]/ZIP Co de Phone Number [facility] [address] [place] [address], [place] [phone] * (ABNORMAL) Hemoglobin A1c (12/09/2024 11:12 AM EDT) [facility] Hemoglobin A1C 7.8(H) <6.5 % LAB CHEMISTRY METHOD 12/09/2024 9:57 PM EDT [facility] Mean Bld Glu Estim. 177 mg/dL LAB CHEMISTRY METHOD 12/09/2024 9:57 PM EDT [facility] Blood Venous blood specimen / Unknown Venipuncture / Unknown 12/09/2024 11:12 AM EDT 12/09/2024 11:12 AM EDT Laura NUNEZ LAB BLOOD ORDERABLES Final Result Performing Organization Address City/[facility]/ZIP Co de Phone Number [facility] [address] [place] [address], [place] [phone] * (ABNORMAL) Basic metabolic panel (12/09/2024 11:12 AM EDT) Sodium 137 133 - 145 mmol/L LAB CHEMISTRY METHOD 12/09/2024 2:[address] [facility] Potassium 4.1 3.5 - 5.5 mmol/L LAB CHEMISTRY METHOD 12/09/2024 2:[address] [facility] Chloride 102 96 - 110 mmol/L LAB CHEMISTRY METHOD 12/09/2024 2:[address] [facility] CO2 28 21 - 32 mmol/L LAB CHEMISTRY METHOD 12/09/2024 2:[address] [facility] Anion Gap 7 3 - 11 LAB CHEMISTRY METHOD 12/09/2024 2:[address] [facility] Glucose 132(H) 70 - 100 mg/dL LAB CHEMISTRY METHOD 12/09/2024 2:[address] [facility] BUN 15 5 - 25 mg/dL LAB CHEMISTRY METHOD 12/09/2024 2:[address] [facility] Creatinine 1.05 0.50 - 1.10 mg/dL LAB CHEMISTRY METHOD 12/09/2024 2:[address] [facility] eGFR 57(L) >=60 mL/min/1. 73m2 LAB CHEMISTRY METHOD 12/09/2024 2:[address] [facility] Comment:Calculation based on the Chronic Kidney Disease Epidemiology Collaboration (CKD-EPI) equation refit without adjustment for race. BUN/Creatinine Ratio 14.3 LAB CHEMISTRY METHOD 12/09/2024 2:[address] [facility] Calcium 9.1 8.5 - 10.5 mg/dL LAB CHEMISTRY METHOD 12/09/2024 2:[address] [facility] Blood Venous blood specimen / Unknown Venipuncture / Unknown 12/09/2024 11:12 AM EDT 12/09/2024 11:12 AM EDT Laura NUNEZ LAB BLOOD ORDERABLES Final Result [facility] [address] [place] [address], * External Diabetic Retina Eye Exam Report (11/18/2024) Anatomical Region Laterality Modality Ultrasound Provider [facility] IMG US PROCEDURES Final [...] probability of hip fracture of 11.6%. Code 63784 -------- FINAL REPORT -------- Dictated By: Reid Mckay Dictated Date: 11/11/2024 10:44 ET Assigned Physician: Reid Mckay Reviewed and Electronically Signed By: Reid Mckay Signed Date: 11/11/2024 10:45 ET Workstation ID: [id number] Transcribed By: Self Edit Transcribed Date: 11/11/2024 [...] density of the femurs bilaterally is 0.717 gm/he7xciof is 71% of that of young normals [...] probability of hip fracture of 11.6%. Code 33015 -------- FINAL REPORT -------- Dictated By: Reid Mckay Dictated Date: 11/11/2024 10:44 ET Assigned Physician: Reid Mckay Reviewed and Electronically Signed By: Reid Mckay Signed Date: 11/11/2024 10:45 ET Workstation ID: [id number] Transcribed By: Self Edit Transcribed Date: 11/11/2024 10:44 ET Laura NUNEZ IMIlsa DXA PROCEDURES Final Re sult * MG Mammo Digital Screening w Dave bilat (08/13/2024 1:19 PM EDT) Anatomical Region Laterality Modality Breast Bilateral Mammography 08/17/2024 7:11 AM EDT Impressions 08/17/2024 7:15 AM EDT Benign. BI-RADS CATEGORY: 1 - NEGATIVE RECOMMENDATION: Screening bilateral mammogram is recommended in 1 year. Mammo Location: [facility], [address] [place] [address], [address], . -------- FINAL REPORT -------- Dictated By: Albina Grace Dictated Date: 08/17/2024 07:11 ET Assigned Physician: Albina Grace Reviewed and Electronically Signed By: Albina Grace Signed Date: 08/17/2024 07:15 ET Workstation ID: [id number] Transcribed By: Self Edit Transcribed Date: 08/17/2024 [...] is recommended in 1 year. Mammo Location: [facility], [address] [place] [address], [phone], . -------- FINAL REPORT -------- Dictated By: Albina Grace Dictated Date: 08/17/2024 07:11 ET Assigned Physician: Albina Grace Reviewed and Electronically Signed By: Albina Grace Signed Date: 08/17/2024 07:15 ET Workstation ID: [id number] Transcribed By: Self Edit Transcribed Date: 08/17/2024 07:11 ET Darlene Christina MD IMG BI PROCEDURES Final Result * Depression Screening (12/24/2023) Pathologist [facility] Depression Screening abstracted Historical Provider HEALTH MAINTENANCE Final Result * Colonoscopy (06/09/2015) [facility] Colonoscopy no interpretation , abstracted Anatomical Region Laterality Modality Other Historical Provider HEALTH MAINTENANCE Final Result * Hepatitis C Screening (12/18/2012) [facility] Hepatitis C Screening abstracted Historical Provider HEALTH MAINTENANCE Final Result from Last 3 Months or Most Recently Relevant to Health Maintenance Insurance MEDICARE [facility] Care Teams Clear Coat Sprayer Relationship Specialty Start Date End Date Darlene Christina MD [address] [place] [phone] PCP - General Internal Medicine 03/11/24
== END 2025-01-19 09:01 | disposition home or self-care (01) ==
LOC: HO.HOS 08:38
PROVIDERS: PCP Internal Medicine; Visit Provider Orthopaedic Surgery
DX: M25.562 Pain in left knee (principal); Z96.652 Presence of left artificial knee joint
CPT/HCPCS: 99213; G2211

== ENCOUNTER → 2025-01-19 08:39 | Outpatient (BNV) | payer MEDICARE, SELFPAY | PROVIDERS: Visit Provider Radiology Body Imaging | DX: M25.462 Effusion, left knee (principal); Z96.652 Presence of left artificial knee joint | CPT/HCPCS: 73562 ==